=== PATIENT | female | born 1985 | race Caucasian/White ===

== ENCOUNTER 2016-06-01 03:08 | Emergency (ER) | payer OTHER ==
[~2016-06-01] VITALS: Ht 157.5 cm; Wt 55.0 kg
[2016-06-01 03:08] VITALS: TEMP 36.7; Ht 157.5 cm; Wt 55.0 kg
[~2016-06-01 03:08] MED LIST: BENZ100C84 PO; BUPR100T8 PO; BUPR8MIS SL; QUET5TAB PO
[2016-06-01] MEDS ORDERED: LORAZEPAM 2 MG/ML 1 ML VIAL IM STA (03:32)
[2016-06-01] MEDS ORDERED: HALOPERIDOL LACTATE 5 MG/ML 1 ML VIAL IM STA ×2 (03:32→03:45)
[2016-06-01 03:41] LABS: BUN/CREATININE RATIO 16.9 (10-20); CALCIUM 9.2 mg/dl (8.5-10.1); CREATININE 0.89 mg/dl (0.60-1.20); POTASSIUM 3.4 mmol/L (3.5-5.1)
[2016-06-01 03:56] LABS: PREG INTERNAL NEGATIVE QC NEG CLEAR BACKGROUND; PREG INTERNAL POSITIVE QC POS CONTROL LINE
--- NOTE | 2016-06-01 04:59 | EMERGENCY ROOM VISIT NOTE ---
History Report prepared by Ashlee: Anthony Goss Under the Supervision of: Dr. Perez Pro D.O. First contact with patient: 03:11 Chief Complaint: ALCOHOL OVERDOSE Stated Complaint: ALCOHOL OVERDOSE History of Present Illness The patient is a 30 year old female who presents to the Emergency Room with complaints of an alcohol overdose occurring prior to arrival. The EMS states that the patient left her work at 2200, and she started drinking afterwards at the bar with coworkers and friends. 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 Per the EMS the patient is currently on depression medications. History is limited due to intoxication. There is no trauma and patient denies any pain. Source of History: EMS History Limited By: intoxication Onset: prior to arrival Position: other (global) Quality: other (alcohol overdose) Review of Systems See HPI for pertinent positives & negatives. A total of 10 systems reviewed and were otherwise negative. Past Medical & Surgical Medical Problems: (1) Family History FH: heart disease FH: lung disease Hypertension Seizures Social History Smoking Status: Heavy Tobacco Smoker Alcohol Use: none Marital Status: single Housing Status: lives with family Occupation Status: employed Current/Historical Medications Unable to Obtain Active Prescriptions or Reported Meds Allergies Coded Allergies: No Known Allergies (Unverified , 12/04/15) Physical Exam Vital Signs Date Time Temp Pulse Resp B/P Pulse Ox O2 Delivery O2 Flow Rate FiO2 06/01/16 07:20 86 06/01/16 07:01 86 20 100/71 96 Room Air 06/01/16 05:48 84 16 108/72 95 Room Air 06/01/16 04:25 73 17 98/51 96 Room Air 06/01/16 03:24 86 18 150/89 95 Room Air 06/01/16 03:21 107 06/01/16 03:08 36.7 108 18 144/111 95 Room Air Physical Exam GENERAL: Laying in bed screaming, moving all extremities HEAD: Normocephalic atraumatic EYE EXAM: injected conjunctiva, PERRL and EOM's grossly intact OROPHARYNX: no exudate, no erythema, lips, buccal mucosa, and tongue normal and mucous membranes are moist NECK: supple, no nuchal rigidity, no adenopathy, non-tender LUNGS: Clear to auscultation. Normal chest wall mechanics HEART: no murmurs, S1 normal and S2 normal CHEST: No tenderness with palpation. ABDOMEN: abdomen soft, non-tender, normo-active bowel sounds, no masses, no rebound or guarding. BACK: Back is symmetrical on inspection and there is no deformity, no midline tenderness, no CVA tenderness. PELVIS: Stable with compression posteriorly and anteriorly. SKIN: no rashes and no bruising UPPER EXTREMITIES: upper extremities are grossly normal. LOWER EXTREMITIES: No pitting edema. NEURO EXAM: Alert intermittently following commands and very emotional, tearful , moving all extremities, non-focal Medical Decision & Procedures Laboratory Results 06/01/16 03:15 Test 06/01/16 03:15 Anion Gap 12.0 mmol/L (3-11) Est Creatinine Clear Calc Drug Dose 74.5 ml/min Estimated GFR () 102.2 Estimated GFR (Non- 88.2 BUN/Creatinine Ratio 16.9 (10-20) Calcium Level 9.2 mg/dl (8.5-10.1) Human Chorionic Gonadotropin, Qual NEG (NEG) Ethyl Alcohol mg/dL 321.0 mg/dl (0-3) Laboratory results per my review. Medications Administered Medications (Trade) Dose Ordered Sig/Danielle Route Start Time Stop Time Status Last Admin Dose Admin Haloperidol Lactate (Haldol Inj) 5 mg NOW STAT IM 06/01/16 03:32 06/01/16 03:33 DC 06/01/16 03:39 5 MG Lorazepam (Ativan Inj) 1 mg NOW STAT IM 06/01/16 03:32 06/01/16 03:33 DC 06/01/16 03:39 1 MG ED Course ED COURSE: Vital signs were reviewed and showed hypertensive The patients medical record was reviewed The above diagnostic studies were performed and reviewed. ED treatments and interventions as stated above. 0311: The patient was evaluated in room B11. A complete history and physical examination was performed. 0330: The patient was still agitated threatening to hurt the staff. She is going to be sedated. 0332: Ativan Inj 1mg IM, Haldol Inj 5mg IM 0519: I reevaluated the patient, and she was doing well 0630: I reevaluated the patient, and she awakens to painful stimuli. She does not follow commands. She is clearly still intoxicated 0715: This patient was signed out to Dr. Pereyra at change of shift. Medical Decision Differential diagnosis: Etiologies such as alcohol intoxication, toxicologic, infection, hypoglycemia, electrolyte abnormalities, cardiac sources, intracerebral event, neurologic, as well as others were entertained. Patient is a 30-year-old female who presents the ER following getting off work and drinking at the bar. Following this she was cut off as she was too intoxicated. There is no trauma per report. She has no signs of trauma on exam. She was brought in by EMS. She was agitated and thrashing around on the bed yelling and screaming. Following this she was restrained and sedated with palatal on Ativan. Labs are remarkable for a sodium of 147 and potassium of 3.4 which is likely secondary to the alcohol and dehydration. Beta hCG was negative. Alcohol was 320. This was drawn at 3:15 in the morning. She will be medically cleared at 2 PM in the afternoon. Patient was signed out to Dr. Pereyra at 7:30 in the morning still sedated from her agitation. Impression Primary Impression: Alcoholic intoxication Additional Impressions: Agitation Hypokalemia Alcohol abuse Critical Care I have personally spent 35 minutes of critical care time in the direct management of this patient. This includes bedside care, interpretation of diagnostic studies, and testing, discussion with consultants, patient, and family members, and other required patient management activities. This 35 minutes is in excess of all separately billable procedures. Scribe Attestation The scribe's documentation has been prepared under my direction and personally reviewed by me in its entirety. I confirm that the note above accurately reflects all work, treatment, procedures, and medical decision making performed by me. Departure Information Dispostion Still a Patient Prescriptions Unable to Obtain Active Prescriptions or Reported Meds Referrals No Doctor, Assigned (PCP) Patient Instructions My [facility] Problem Qualifiers Primary Impression: Alcoholic intoxication Complication of substance-induced condition: with unspecified complication Qualified Codes: F10.129 - Alcohol abuse with intoxication, unspecified
[2016-06-01 10:06] VITALS: PULSE 75; O2SAT 95
[2016-06-01 12:06] VITALS: BP 136/82
--- NOTE | 2016-06-01 20:57 | EMERGENCY ROOM VISIT NOTE ---
ED Visit Note First contact with patient: 07:39 I received this pt in signout at the change of shift from Dr Pro, pending a more sober state. Pt was observed on the structural shop helper until her mental status improved. She was awake and ambulatory. Pt was able to call her family for a ride. Pt was d/c to sister's care. Please see Dr Pro's notes for further details.
== END 2016-06-01 12:56 | disposition home or self-care (01) ==
LOC: EDBD 03:08 → C.EDB 03:09
DX: F10.129 Alcohol abuse with intoxication, unspecified (principal); R45.1 Restlessness and agitation; E87.6 Hypokalemia; Z82.49 Family history of ischemic heart disease and other diseases of the circulatory system; Z82.0 Family history of epilepsy and other diseases of the nervous system; F17.200 Nicotine dependence, unspecified, uncomplicated; Y90.8 Blood alcohol level of 240 mg/100 ml or more

== ENCOUNTER 2017-11-07 01:17 | Emergency (ER) | payer OTHER ==
[~2017-11-07] VITALS: Ht 157.5 cm; Wt 56.5 kg
[2017-11-07 01:17] VITALS: TEMP 36.9; Ht 157.5 cm; Wt 56.5 kg
[2017-11-07] MEDS ORDERED: SODIUM CHLORIDE 0.9% 1000ML 1,000 ML IV ONE (01:30)
[2017-11-07 01:37] VITALS: O2SAT 94
[2017-11-07 02:01] LABS: BASO % 0.2 %; BASO ABS # 0.02 K/uL (0-0.2); EOS % 4.5 %; EOS ABS # 0.39 K/uL (0-0.5); HEMATOCRIT 39.1 % (37-47); HEMOGLOBIN 12.8 g/dL (12.0-16.0); IG# 0.03 K/uL (0.00-0.02); LYMPH % 43.2 %; LYMPH ABS # 3.72 K/uL (1.2-3.4); MEAN CELL VOLUME 94.7 fL (80-100); MEAN CORPUSCULAR HGB CONC 32.7 g/dl (32-36); MEAN PLATELET VOLUME 9.9 fL (7.4-10.4); MONO % 6.2 %; MONO ABS # 0.53 K/uL (0.11-0.59); NEUT % 45.6 %; NEUT ABS # 3.92 K/uL (1.4-6.5); PLATELET COUNT 210 K/uL (130-400); RED CELL DISTRIBUTION WIDTH CV 14.3 % (11.5-14.5); RED CELL DISTRIBUTION WIDTH SD 49.5 fL (36.4-46.3); WHITE BLOOD COUNT 8.61 K/uL (4.8-10.8)
[2017-11-07 02:22] LABS: ALBUMIN 3.3 gm/dl (3.4-5.0); CALCIUM 8.2 mg/dl (8.5-10.1); CREATININE 1.07 mg/dl (0.60-1.20); POTASSIUM 3.8 mmol/L (3.5-5.1); TOTAL PROTEIN 6.7 gm/dl (6.4-8.2)
--- NOTE | 2017-11-07 06:55 | EMERGENCY ROOM VISIT NOTE ---
History First contact with patient: 01:21 Chief Complaint: OVERDOSE (INTENTIONAL) Stated Complaint: OVERDOSE History of Present Illness The patient is a 32 year old female who presents to the Emergency Room with complaints of overdose. The patient's car was found pulled off the side of [place] in [place] less than 1 hour ago. Police found the patient asleep in her car, and they were not able to awaken her. They had to break her car door window in order to extricate her. The patient did not awaken to sternal rub, and they did give her an initial dose of Narcan. Immediately after this she awoke and was responsive. Evidently there was drug paraphernalia in the vehicle. The patient herself denies any drug use. She denies suicidal or homicidal ideation. She states that she got paid today and came to the [employer] area to pay back someone that she borrowed money from. The patient states that she was at a gas station. She has difficulty providing any additional history because of her status. She does not report pain or injury. She rates her discomfort as 0/10. Review of Systems More than 10 systems were reviewed and otherwise negative with the exception of history of present illness. Past Medical/Surgical History Medical Problems: (1) Family History FH: heart disease FH: lung disease Hypertension Seizures Social History Smoking Status: Current Every Day Smoker Alcohol Use: none Marital Status: single Housing Status: lives with family Occupation Status: employed Current/Historical Medications No Active Prescriptions or Reported Meds Physical Exam Vital Signs Date Time Temp Pulse Resp B/P (MAP) Pulse Ox O2 Delivery O2 Flow Rate FiO2 11/07/17 06:00 67 18 133/83 95 Room Air 11/07/17 05:08 51 11/07/17 05:01 138/80 11/07/17 05:00 54 16 94 11/07/17 04:32 111/68 11/07/17 04:30 50 16 95 11/07/17 04:02 53 18 104/67 95 11/07/17 04:00 54 18 116/43 96 11/07/17 03:30 49 17 159/88 96 11/07/17 03:01 11/07/17 03:00 52 28 94 11/07/17 02:40 59 16 136/91 96 Room Air 11/07/17 01:37 94 Room Air 11/07/17 01:27 58 8/7/18 01:17 36.9 63 14 132/81 97 Room Air Physical Exam VITALS: Vitals are noted on the nurse's note and reviewed by myself. Vital signs stable. GENERAL: White female who appears under the influence of unknown substance. She will answer some questions with 1 or 2 word answers. She appears very tired , but is not somnolent HEAD: Normocephalic atraumatic. EARS: External ear normal. External auditory canals clear, tympanic membranes pearly machado without erythema or effusion bilaterally. EYES: Pupils equal round and reactive to light and accommodation. Conjunctivae without injection, sclerae without icterus. Extraocular movements intact. NOSE: Patent, turbinates without inflammation or discharge. No obvious foreign material appreciated MOUTH: Mucous membranes moist. Tonsils are not enlarged. There is a dark substance on the lips NECK: Supple without nuchal rigidity. No lymphadenopathy. No thyromegaly. Cervical spine is nontender. HEART: Regular rate and rhythm without murmurs gallops or rubs. LUNGS: Clear to auscultation bilaterally without wheezes, rales or rhonchi. No retractions or accessory muscle use. ABDOMEN: Positive normal bowel sounds x 4. Soft, nontender, without masses or organomegaly. No guarding or rebound tenderness. MUSCULOSKELETAL: No muscle atrophy, erythema, or edema noted. Full range of motion in all extremities. No track back appreciated. NEURO: Patient was not alert to place, time, or location Medical Decision & Procedures Laboratory Results 11/07/17 01:40 Red Blood Count 4.13, Mean Corpuscular Volume 94.7, Mean Corpuscular Hemoglobin 31.0, Mean Corpuscular Hemoglobin Concent 32.7, Mean Platelet Volume 9.9, Neutrophils (%) (Auto) 45.6, Lymphocytes (%) (Auto) 43.2, Monocytes (%) (Auto) 6.2, Eosinophils (%) (Auto) 4.5, Basophils (%) (Auto) 0.2, Neutrophils # (Auto) 3.92, Lymphocytes # (Auto) 3.72, Monocytes # (Auto) 0.53, Eosinophils # (Auto) 0.39, Basophils # (Auto) 0.02 11/07/17 01:40 Test 11/07/17 01:40 11/07/17 01:47 11/07/17 02:30 White Blood Count 8.61 K/uL (4.8-10.8) Red Blood Count 4.13 M/uL (4.2-5.4) Hemoglobin 12.8 g/dL (12.0-16.0) Hematocrit 39.1 % (37-47) Mean Corpuscular Volume 94.7 fL (80-100) Mean Corpuscular Hemoglobin 31.0 pg (25-34) Mean Corpuscular Hemoglobin Concent 32.7 g/dl (32-36) Platelet Count 210 K/uL (130-400) Mean Platelet Volume 9.9 fL (7.4-10.4) Neutrophils (%) (Auto) 45.6 % Lymphocytes (%) (Auto) 43.2 % Monocytes (%) (Auto) 6.2 % Eosinophils (%) (Auto) 4.5 % Basophils (%) (Auto) 0.2 % Neutrophils # (Auto) 3.92 K/uL (1.4-6.5) Lymphocytes # (Auto) 3.72 K/uL (1.2-3.4) Monocytes # (Auto) 0.53 K/uL (0.11-0.59) Eosinophils # (Auto) 0.39 K/uL (0-0.5) Basophils # (Auto) 0.02 K/uL (0-0.2) RDW Standard Deviation 49.5 fL (36.4-46.3) RDW Coefficient of Variation 14.3 % (11.5-14.5) Immature Granulocyte % (Auto) 0.3 % Immature Granulocyte # (Auto) 0.03 K/uL (0.00-0.02) Anion Gap 7.0 mmol/L (3-11) Est Creatinine Clear Calc Drug Dose 60.8 ml/min Estimated GFR () 80.7 Estimated GFR (Non- 69.6 BUN/Creatinine Ratio 14.1 (10-20) Calcium Level 8.2 mg/dl (8.5-10.1) Total Bilirubin 0.5 mg/dl (0.2-1) Aspartate Amino Transf (AST/SGOT) 11 U/L (15-37) Alanine Aminotransferase (ALT/SGPT) 20 U/L (12-78) Alkaline Phosphatase 59 U/L (45-117) Total Creatine Kinase 62 U/L (26-192) Total Protein 6.7 gm/dl (6.4-8.2) Albumin 3.3 gm/dl (3.4-5.0) Globulin 3.4 gm/dl (2.5-4.0) Albumin/Globulin Ratio 1.0 (0.9-2) Lipase 516 U/L (73-393) Salicylates Level 5.6 mg/dl (2.8-20) Acetaminophen Level < 2 ug/ml (10-30) Ethyl Alcohol mg/dL < 3.0 mg/dl (0-3) Bedside Troponin I < 0.030 ng/ml (0-0.045) Urine Color DK YELLOW Urine Appearance CLEAR (CLEAR) Urine pH 5.0 (4.5-7.5) Urine Specific [place] 1.036 (1.000-1.030) Urine Protein TRACE (NEG) Urine Glucose (UA) NEG (NEG) Urine Ketones NEG (NEG) Urine Occult Blood 2+ (NEG) Urine Nitrite NEG (NEG) Urine Bilirubin NEG (NEG) Urine Urobilinogen NEG (NEG) Urine Leukocyte Esterase NEG (NEG) Urine WBC (Auto) 1-5 /hpf (0-5) Urine RBC (Auto) 0-4 /hpf (0-4) Urine Hyaline Casts (Auto) 1-5 /lpf (0-5) Urine Epithelial Cells (Auto) >30 /lpf (0-5) Urine Bacteria (Auto) NEG (NEG) Urine Test NEG (NEG) Urine Opiates Screen NEG (NEG) Urine Methadone, Qualitative NEG (NEG) Urine Barbiturates NEG (NEG) Urine Phencyclidine (PCP) Level NEG (NEG) Ur Amphetamine/Methamphetamine NEG (NEG) MDMA (Ecstasy) Screen POS (NEG) Urine Benzodiazepines Screen NEG (NEG) Urine Cocaine Metabolite NEG (NEG) Urine Marijuana (THC) NEG (NEG) Medications Administered Medications (Trade) Dose Ordered Sig/Danielle Route Start Time Stop Time Status Last Admin Dose Admin Sodium Chloride 1,000 ml @ 999 mls/hr Q1H1M ONCE IV 11/07/17 01:30 11/07/17 02:30 DC 11/07/17 01:39 999 MLS/HR ED Course Physical exam and history were performed. Nursing notes, EMR, and Medication List were personally reviewed. Patient appears to have overdosed on an unknown drug. She appears under the influence, but is answering questions in 1 or 2 word answers. She does not give a good history, and overall denies the events of the evening despite police involvement. Police did talk to the patient while she was here in the department. IV access was established and labs were obtained. She was hydrated with normal saline. The patient was overall cooperative. The patient's blood work is as above and was reviewed. She does not have a significantly elevated white blood cell count, gross anemia, bandemia, or significant electrolyte imbalance. Transaminases are not diagnostic. Urine is without evidence of infection or . Drug of abuse screen was positive for ecstasy, however this may be from psych. Her alcohol is negative. Tylenol and salicylate level are negative. The patient was reevaluated multiple times throughout the course of her stay. She remained very comfortable and cooperative here in the department over the course of nearly 6 hours. She may have been doing synthetic drugs, as there was paraphernalia in her vehicle. The patient was able to maintain normal vital signs and sleep very comfortably here in the department. She awoken very easily to voice, and did not have any worsening of her symptoms. After several hours the patient did awaken and was felt to be stable for discharge home. I did re-interview her, and she essentially denies that anything occurred this evening. She maintains that she was just tired and was sleeping in her car. She does not have suicidal or homicidal ideas. She does not wish for social science research assistant for resources. The patient was given discharge instructions as below and otherwise invited back to the ER with any new, worsening, or concerning symptoms. The chart was completed utilizing [employer] Voice Recognition Software. Grammatical errors, random word insertions, pronoun errors, and incomplete sentences are an occasional consequence of this system due to software limitations, ambient noise, and hardware issues. Any formal questions or concerns about the content, text, or information contained within the body of this dictation should be directly addressed to the provider for clarification. . Medical Decision Differential diagnosis: Etiologies such as metabolic, infection, hypoglycemia, electrolyte abnormalities , cardiac sources, intracerebral event, toxicologic, neurologic, as well as others were entertained. Impression Primary Impression: Overdose Departure Information Dispostion Home / Self-Care Condition GOOD Prescriptions No Active Prescriptions or Reported Meds Forms HOME CARE DOCUMENTATION FORM, IMPORTANT VISIT INFORMATION Patient Instructions My [facility] Additional Instructions You were seen and evaluated today on an emergency basis only. This is not a substitute for, or an effort to provide, complete comprehensive medical care. It is not possible to recognize and treat all injuries or illnesses in a single emergency department visit. For this reason it is recommended that you followup with your primary care physician with any persisting symptoms. You are welcome to return to the emergency department anytime with new, worsening, or concerning symptoms. Problem Qualifiers Primary Impression: Overdose Encounter type: initial encounter Injury intent: undetermined intent Qualified Codes: T50.904A - Poisoning by unspecified drugs, medicaments and biological substances, undetermined, initial encounter
--- NOTE | 2017-11-07 07:33 | DIAGNOSTIC IMAGING REPORT ---
SINGLE VIEW CHEST CLINICAL HISTORY: Overdose. FINDINGS: An AP, portable, upright chest radiograph is compared to study dated 10/01/2015. The examination is degraded by portable technique and patient rotation. The cardiomediastinal silhouette is unremarkable. There is minimal bibasilar atelectasis. The lungs and pleural spaces are otherwise clear. No pneumothorax is seen. The bony thorax is grossly intact. IMPRESSION: No acute cardiopulmonary abnormality. Electronically signed by: Compa Mosher M.D. 11/07/2017 7:32 AM Dictated Date/Time: 11/07/2017 7:31 AM
[2017-11-07 07:48] VITALS: BP 124/71; PULSE 53; O2SAT 97
== END 2017-11-07 08:15 | disposition home or self-care (01) ==
LOC: EDBD 01:17 → C.EDC 01:20
DX: T50.904A Poisoning by unspecified drugs, medicaments and biological substances, undetermined, initial encounter (principal)

== ENCOUNTER → 2017-11-07 | Outpatient (CLI) | payer OTHER | END | disposition home or self-care (01) | LOC: C.LAB 02:09 | DX: Z02.83 Encounter for blood-alcohol and blood-drug test (principal) ==

== ENCOUNTER 2020-10-21 20:13 | Inpatient (IN) ==
[2020-10-21] MEDS ORDERED: SODIUM CHLORIDE 0.9% 1000ML 1,000 ML IV ONE (20:24)
[2020-10-21 21:13] LABS: Appearance Urine Clear (Clear); Blood Urine Negative (Negative); Color Urine Dark Yellow; Glucose Urine UA Negative (Negative); Ketones Urine Negative (Negative); Leukocyte Esterase Urine Negative (Negative); Nitrite Urine Negative (Negative); Protein Urine Negative (Negative); Specific Gravity Urine 1.012 (1.000-1.030); Urobilinogen Urine Negative (Negative)
--- NOTE | 2020-10-21 21:13 | Emergency Department Note ---
History of Present Illness General Chief Complaint: Flank Pain Stated Complaint: R SIDE FLANK PAIN, DEHYDRATION, BACK PAIN Time Seen by Provider: 10/21/20 20:25 History of Present Illness Provider Complaint: abdominal pain and flank pain Onset (ago): 3 day(s) Pain Consistency: constant Location: RUQ Radiation: R flank and back Severity: moderate Maximum Pain Intensity: 7 Current Pain Intensity: 7 Quality: + stabbing, + aching, + sharp and + dull Relieved By: + nothing Exacerbated By: + nothing Context: no foreign travel, no possible food poisoning, no sick contacts, no recent antibiotic use, no recent surgery/procedure or no recent injury Associated Symptoms: + nausea and + back pain; no vomiting, no diarrhea, no fever, no chills, no constipation, no dysuria, no hematemesis, no hematochezia, no melena, no hematuria, no anorexia, no syncope, no headache, no neck pain, no chest pain, no weakness and no numbness Home Medications Medication Instructions Recorded Confirmed Type quetiapine 200 mg tablet 200 mg PO BID 10/21/20 10/21/20 History sertraline 50 mg tablet 50 mg PO DAILY 10/21/20 10/21/20 History Allergies Allergy/AdvReac Type Severity Reaction Status Date / Time No Known Allergies Allergy Verified 10/21/20 23:10 Past Med/Surg History Medical History (Updated 10/21/20 @ 23:52 by Ryan Brody) Altered mental status Surgical History (Updated 10/21/20 @ 21:12 by Ryan Brody) No pertinent past surgical history Family History Other Seizure Social History (Updated 10/21/20 @ 21:12 by Ryan Brody) Smoking Status: Current every day smoker Hx Substance Use: Yes Non-Prescribed Medications: IV Drugs and Methamphetamines Preferred Language: Martiniquais Feels Safe at Home: Yes Review of Systems A total of 10 systems reviewed and were otherwise negative Physical Exam Vital Signs: Vital Signs - 24 hr 10/21/20 20:19 10/21/20 21:01 10/21/20 21:53 Temperature 37.0 C Temperature Source Temporal Artery Sc an Pulse Rate 97 H Pulse Rate from Sp O2 Sensor 95 H Respiratory Rate 18 17 Respiratory Effort / Characteristics Non-Labored Sponta neous Respiratory Depth Normal Respiratory Patter n Regular Blood Pressure 141/95 H 136/97 130/109 H Blood Pressure Aniyah n 110 110 116 Blood Pressure Pos ition Sitting Pulse Oximetry 96 98 Oxygen Delivery Me thod Room Air Sepsis Recent Feve r Within 48 Hours No Sepsis New/Unexpla ined Change in Men tomer Status No Sepsis Action Take n by Nursing No Action Required 10/21/20 21:56 10/21/20 22:00 10/21/20 22:31 Temperature Temperature Source Pulse Rate 90 Pulse Rate from Sp O2 Sensor 80 89 Respiratory Rate 18 18 Respiratory Effort / Characteristics Respiratory Depth Respiratory Patter n Blood Pressure 146/99 H 125/95 Blood Pressure Aniyah n 114 105 Blood Pressure Pos ition Pulse Oximetry 98 98 97 Oxygen Delivery Me thod Room Air Sepsis Recent Feve r Within 48 Hours Sepsis New/Unexpla ined Change in Men tomer Status Sepsis Action Take n by Nursing Physical Exam: Physical Exam GENERAL: She is oriented to person, place, and time. She appears well-developed and well-nourished. She does not appear distressed. HENT: Exam performed. -Head: Normocephalic and atraumatic. -Right Ear: External ear normal. No mastoid tenderness. -Left Ear: External ear normal. No mastoid tenderness. -Mouth/Throat: The oropharynx is clear and moist. No trismus in the jaw. No dental abscesses or uvula swelling. No oropharyngeal exudate or tonsillar abscesses. EYES: Conjunctivae and EOM are normal. Pupils are equal, round, and reactive to light. Right eye exhibits no discharge. Left eye exhibits no discharge. scleral icterus. NECK: Normal range of motion. Neck supple. No JVD present. No spinous process tenderness present. No carotid bruit present. No rigidity. No tracheal deviation and normal range of motion present. No Brudzinski's sign and no Kernig's sign noted. CV: Normal rate, regular rhythm, normal heart sounds and intact distal pulses. There is no peripheral edema. Palpable radial pulses bue. PULM/CHEST: Effort normal and breath sounds normal. No respiratory distress. No stridor. She has no wheezes. She has no rales. -Chest Wall: She exhibits no tenderness. ABD: The abdomen is soft. Bowel sounds are normal. She has no distension. No mass is present. There is no tenderness. There is no rebound, no guarding, no Saleem's sign and no tenderness at McBurney's point. Rovsig negative MUSC/SKEL: Normal range of motion. There is no peripheral edema, tenderness or deformity. LYMPH: No cervical adenopathy. NEURO: She is alert and oriented to person, place, and time. She has normal strength. No cranial nerve deficit or sensory deficit. Coordination and gait normal. GCS eye subscore is 4. GCS verbal subscore is 5. GCS motor subscore is 6. Cerebellar tests wnl. SKIN: Jaundice PSYCH: She has a normal mood and affect. Behavior is normal. Judgment and thought content normal. Course Course 2024: The patient was evaluated in room A12. A complete history and physical exam was performed Cardiac monitoring: An order was placed for continuous cardiac monitoring. The monitor shows a rate of 90 with sinus rhythm 2220: Vital signs stable. Ultrasound of the right upper quadrant within normal limits. X-ray shows constipation. Labs show total bilirubin of 5 and a direct bilirubin of 3.9. AST/ALT 1079/1449. Alkaline phosphatase 217. [facility] new transaminitis and elevated bilirubin level. Dr. Alfaro team will be has been notified Administered Medications Discontinued Medications Sodium Chloride (Nss 1000ml) 1,000 mls @ 999 mls/hr IV .Q1H1M ONE Stop: 10/21/20 21:24 Last Infusion: 10/21/20 22:14 Dose: 0 mls/hr Documented by: [id number] Admin: 10/21/20 20:45 Dose: 999 mls/hr Documented by: [id number] Medical Decision Making Laboratory Data Result diagrams: 10/21/20 Unknown 10/21/20 20:54 Lab Results 10/21/20 10/21/20 10/21/20 Range/Units 20:54 20:54 22:28 WBC (4.8-10.8) K/uL RBC (4.2-5.4) M/uL Hgb (12.0-16.0) g/dL Hct (37-47) % MCV (80-100) fL MCH (25-34) pg MCHC (32-36) g/dL RDW Std Deviation (36.4-46.3) fL RDW Coeff of Ally (11.5-14.5) % Plt Count (130-400) K/uL MPV (7.4-10.4) fL Immature Gran % (Auto) % Neut % (Auto) % Lymph % (Auto) % [place] % (Auto) % Eos % (Auto) % Baso % (Auto) % Neut # (Auto) (1.4-6.5) K/uL Lymph # (Auto) (1.2-3.4) K/uL [place] # (Auto) (0.11-0.59) K/uL Eos # (Auto) (0-0.5) K/uL Baso # (Auto) (0-0.2) K/uL Immature Gran # (Auto) (0.00-0.02) K/uL PT 10.3 (9.0-12.0) Seconds INR 1.0 (0.9-1.1) APTT 29.6 (21.0-31.0) Seconds PTT Ratio 1.1 Sodium 139 (136-145) mmol/L Potassium 3.8 (3.5-5.1) mmol/L Chloride 108 H (98-107) mmol/L Carbon Dioxide 26 (21-32) mmol/L Anion Gap 5.0 (3-11) BUN 10 (7-18) mg/dl Creatinine 0.80 (0.6-1.2) mg/dl Est Cr Clr Drug Dosing 87.2 ml/min Est GFR ( Amer) 112.3 ml/min Est GFR (Non-Af Amer) 96.9 ml/min BUN/Creatinine Ratio 13.0 (10-20) Glucose 92 (70-99) mg/dl Calcium 9.0 (8.5-10.1) mg/dl Total Bilirubin 5.0 H (0.2-1) mg/dl Direct Bilirubin 3.9 H (0-0.2) mg/dl AST 1079 H (15-37) U/L ALT 1449 H (12-78) U/L Alkaline Phosphatase 217 H (45-117) U/L Total Protein 7.5 (6.4-8.2) gm/dl Albumin 3.5 (3.4-5.0) gm/dl Lipase 161 (73-393) U/L Urine Color Urine Appearance (Clear) Urine pH (4.5-7.5) Ur Specific Cummings (1.000-1.030) Urine Protein (Negative) Urine Glucose (UA) (Negative) Urine Ketones (Negative) Urine Blood (Negative) Urine Nitrite (Negative) Urine Bilirubin (Negative) Urine Urobilinogen (Negative) Ur Leukocyte Esterase (Negative) Urine Test (Negative) Acetaminophen COVID-19 Eval Order Covid19 at [facility] SARS-CoV-2 (PCR) (Negative) 10/21/20 10/21/20 10/21/20 Range/Units 22:28 22:57 Unknown WBC 7.95 (4.8-10.8) K/uL RBC 4.60 (4.2-5.4) M/uL Hgb 14.3 (12.0-16.0) g/dL Hct 41.7 (37-47) % MCV 90.7 (80-100) fL MCH 31.1 (25-34) pg MCHC 34.3 (32-36) g/dL RDW Std Deviation 48.4 H (36.4-46.3) fL RDW Coeff of Ally 14.7 H (11.5-14.5) % Plt Count 286 (130-400) K/uL MPV 10.7 H (7.4-10.4) fL Immature Gran % (Auto) 0.6 % Neut % (Auto) 51.1 % Lymph % (Auto) 30.6 % [place] % (Auto) 11.9 % Eos % (Auto) 5.3 % Baso % (Auto) 0.5 % Neut # (Auto) 4.06 (1.4-6.5) K/uL Lymph # (Auto) 2.43 (1.2-3.4) K/uL [place] # (Auto) 0.95 H (0.11-0.59) K/uL Eos # (Auto) 0.42 (0-0.5) K/uL Baso # (Auto) 0.04 (0-0.2) K/uL Immature Gran # (Auto) 0.05 H (0.00-0.02) K/uL PT (9.0-12.0) Seconds INR (0.9-1.1) APTT (21.0-31.0) Seconds PTT Ratio Sodium (136-145) mmol/L Potassium (3.5-5.1) mmol/L Chloride (98-107) mmol/L Carbon Dioxide (21-32) mmol/L Anion Gap (3-11) BUN (7-18) mg/dl Creatinine (0.6-1.2) mg/dl Est Cr Clr Drug Dosing ml/min Est GFR ( Amer) ml/min Est GFR (Non-Af Amer) ml/min BUN/Creatinine Ratio (10-20) Glucose (70-99) mg/dl Calcium (8.5-10.1) mg/dl Total Bilirubin (0.2-1) mg/dl Direct Bilirubin (0-0.2) mg/dl AST (15-37) U/L ALT (12-78) U/L Alkaline Phosphatase (45-117) U/L Total Protein (6.4-8.2) gm/dl Albumin (3.4-5.0) gm/dl Lipase (73-393) U/L Urine Color Urine Appearance (Clear) Urine pH (4.5-7.5) Ur Specific Cummings (1.000-1.030) Urine Protein (Negative) Urine Glucose (UA) (Negative) Urine Ketones (Negative) Urine Blood (Negative) Urine Nitrite (Negative) Urine Bilirubin (Negative) Urine Urobilinogen (Negative) Ur Leukocyte Esterase (Negative) Urine Test (Negative) Acetaminophen Cancelled COVID-19 Eval Order SARS-CoV-2 (PCR) NEGATIVE (Negative) 10/21/20 10/21/20 Range/Units Unknown Unknown WBC (4.8-10.8) K/uL RBC (4.2-5.4) M/uL Hgb (12.0-16.0) g/dL Hct (37-47) % MCV (80-100) fL MCH (25-34) pg MCHC (32-36) g/dL RDW Std Deviation (36.4-46.3) fL RDW Coeff of Ally (11.5-14.5) % Plt Count (130-400) K/uL MPV (7.4-10.4) fL Immature Gran % (Auto) % Neut % (Auto) % Lymph % (Auto) % [place] % (Auto) % Eos % (Auto) % Baso % (Auto) % Neut # (Auto) (1.4-6.5) K/uL Lymph # (Auto) (1.2-3.4) K/uL [place] # (Auto) (0.11-0.59) K/uL Eos # (Auto) (0-0.5) K/uL Baso # (Auto) (0-0.2) K/uL Immature Gran # (Auto) (0.00-0.02) K/uL PT (9.0-12.0) Seconds INR (0.9-1.1) APTT (21.0-31.0) Seconds PTT Ratio Sodium (136-145) mmol/L Potassium (3.5-5.1) mmol/L Chloride (98-107) mmol/L Carbon Dioxide (21-32) mmol/L Anion Gap (3-11) BUN (7-18) mg/dl Creatinine (0.6-1.2) mg/dl Est Cr Clr Drug Dosing ml/min Est GFR ( Amer) ml/min Est GFR (Non-Af Amer) ml/min BUN/Creatinine Ratio (10-20) Glucose (70-99) mg/dl Calcium (8.5-10.1) mg/dl Total Bilirubin (0.2-1) mg/dl Direct Bilirubin (0-0.2) mg/dl AST (15-37) U/L ALT (12-78) U/L Alkaline Phosphatase (45-117) U/L Total Protein (6.4-8.2) gm/dl Albumin (3.4-5.0) gm/dl Lipase (73-393) U/L Urine Color Dark Yellow Urine Appearance Clear (Clear) Urine pH 6.0 (4.5-7.5) Ur Specific Cummings 1.012 (1.000-1.030) Urine Protein Negative (Negative) Urine Glucose (UA) Negative (Negative) Urine Ketones Negative (Negative) Urine Blood Negative (Negative) Urine Nitrite Negative (Negative) Urine Bilirubin 1+ H (Negative) Urine Urobilinogen Negative (Negative) Ur Leukocyte Esterase Negative (Negative) Urine Test Negative (Negative) Acetaminophen COVID-19 Eval Order SARS-CoV-2 (PCR) (Negative) Imaging Data My Impression: Chest x-ray negative. Airway clear. No pneumothorax. No consolidation. No cardiomegaly or cephalization.. No free air under the diaphragm. No fractures of the skeletal structures. No air-fluid levels. Constipated. Radiologist's Impression: PreliminaryFindingsOnly See Final Report For Complete Findings US GALLBLADDER: Normal exam. No cholelithiasis or acute cholecystitis. Normal, contracted gallbladder and negative sonographic Saleem's. No ductal dilatation, CBD 3 mm. No hydronephrosis of the right kidney. Radiologist: Margy Mchugh M.D. Study ready at 21:52 and initial results transmitted at 22:15 MDM Narrative 2024: The patient was evaluated in room A12. A complete history and physical exam was performed Cardiac monitoring: An order was placed for continuous cardiac monitoring. The monitor shows a rate of 90 with sinus rhythm 2220: Vital signs stable. Ultrasound of the right upper quadrant within normal limits. X-ray shows constipation. Labs show total bilirubin of 5 and a direct bilirubin of 3.9. AST/ALT 1079/1449. Alkaline phosphatase 217. [facility] new transaminitis and elevated bilirubin level. Dr. Alfaro team will be has been notified Impression & Plan Jaundice, Transaminitis Discharge Plan Visit Data Chief Complaint: Flank Pain Stated Complaint: R SIDE FLANK PAIN, DEHYDRATION, BACK PAIN ED Provider: Ryan Brody Discharge Problem: Jaundice, Transaminitis Patient Disposition: Admitted As Inpatient Forms Stand Alone Forms: My [facility] [address] Prescriptions Prescriptions: No Action quetiapine 200 mg tablet 200 mg PO BID RF: 0 sertraline 50 mg Tablet 50 mg PO DAILY RF: 0 Referrals Referrals: [facility] [Primary Care Provider] -
[2020-10-21 21:24] LABS: Basophils # (auto) 0.04 K/uL (0-0.2); Basophils % (auto) 0.5 %; Eosinophils # (auto) 0.42 K/uL (0-0.5); Eosinophils % (auto) 5.3 %; Hematocrit (blood only) 41.7 % (37-47); Hemoglobin 14.3 g/dL (12.0-16.0); Immature Granulocytes # (auto) 0.05 K/uL (0.00-0.02); Immature Granulocytes % (auto) 0.6 %; Lymphocytes # (auto) 2.43 K/uL (1.2-3.4); Lymphocytes % (auto) 30.6 %; Mean Corpuscular Hemoglobin 31.1 pg (25-34); Mean Corpuscular Hgb Conc 34.3 g/dL (32-36); Mean Corpuscular Volume 90.7 fL (80-100); Mean Platelet Volume 10.7 fL (7.4-10.4); Monocytes # (auto) 0.95 K/uL (0.11-0.59); Monocytes % (auto) 11.9 %; Neutrophils # (auto) 4.06 K/uL (1.4-6.5); Neutrophils % (auto) 51.1 %; Platelet Count 286 K/uL (130-400); RDW Coefficient of Variation 14.7 % (11.5-14.5); RDW Standard Deviation 48.4 fL (36.4-46.3); White Blood Count 7.95 K/uL (4.8-10.8)
[2020-10-21 21:24] LABS: Partial Thromboplastin Ratio 1.1; Partial Thromboplastin Time 29.6 Seconds (21.0-31.0); Prothrombin Time 10.3 Seconds (9.0-12.0)
[2020-10-21 21:29] LABS: Pregnancy Test, Urine Negative (Negative)
[2020-10-21 21:34] LABS: Albumin Level 3.5 gm/dl (3.4-5.0); Bilirubin Direct 3.9 mg/dl (0-0.2); Creatinine Clr Calc Pharmacy 87.2 ml/min; Est GFR (African American) 112.3 ml/min; Est GFR (Non-African American) 96.9 ml/min; Potassium 3.8 mmol/L (3.5-5.1)
[2020-10-21 21:38] LABS: Total Protein 7.5 gm/dl (6.4-8.2)
[2020-10-21 21:49] LABS: Bilirubin Urine 1+ (Negative)
--- NOTE | 2020-10-21 23:37 | History & Physical Report ---
Date of Service October 21, 2020 Assessment & Plan (1) Abnormal LFTs: Plan: Abnormal LFTs/jaundice/right upper quadrant abdominal pain radiating to right flank/new hepatitis C antibody positivity and blood- Hepatitis C RNA quantitative laboratories pending now for follow-up Consult gastroenterology Repeat laboratories in a.m. Remaining acute hepatitis viral panel pending It should be discussed with the patient in the a.m. consideration for HIV testing (2) Jaundice: Plan: See above (3) Right upper quadrant abdominal pain: Plan: See above (4) Hepatitis C antibody positive in blood: Plan: See above History of Present Illness Chief Complaint: The patient presents to the emergency department with right upper quadrant and right flank pain worsening over the past 3 days, but initially noted about 2 months ago and intermittent since that time Primary Care Provider: [facility] The patient is a 35-year-old resident of [facility], with a past medical history including depression, who presents to the emergency department with the above complaint. She does report a history of drug abuse, but denies any regular alcohol use and does not take in a lot of Tylenol. Pertinent laboratories in the emergency department: Total bilirubin 5.0, direct bilirubin 3.9, AST 1079, ALT 1449 and alkaline phosphatase 217. Follow-up laboratories include the following: COVID-19 negative, hepatitis A IgM pending, hepatitis B surface antigen negative, hepatitis B core IgM antibody pending and hepatitis C antibody preliminarily positive, with RNA PCR pending Gallbladder ultrasound was normal. CT scan of abdomen and pelvis CT scan of abdomen and pelvis without contrast was negative Allergies Allergy/AdvReac Type Severity Reaction Status Date / Time No Known Allergies Allergy Verified 10/21/20 23:10 Home Medications Medication Instructions Recorded Confirmed Type quetiapine 200 mg tablet 200 mg PO BID 10/21/20 10/21/20 History sertraline 50 mg tablet 50 mg PO DAILY 10/21/20 10/21/20 History Past Med/Surg History Medical History (Updated 10/22/20 @ 05:04 by Doc Peña MD) Altered mental status Surgical History No pertinent past surgical history Family History Other Seizure Social History (Updated 10/21/20 @ 21:12 by Ryan Brody) Smoking Status: Former smoker Second Hand Exposure: No; Do You Dip or Chew Tobacco: No; Tobacco Cessation Education Requested by Patient: No Hx Alcohol Use: No Hx Substance Use: Yes Non-Prescribed Medications: IV Drugs and Methamphetamines Last Used Substance: Days (ago) Last Used Substance Other:: September 20 Substance Use Type Other:: 10 months ago started IV drug use Preferred Language: Norwegian Learning Strategist Required: No Beliefs That Will Affect Care: None Current Living Situation Comment: Inmate Other Information That Helps Us Care for You: No Feels Safe at Home: Yes Safety Concerns: Feels Safe At This Time Assistive Devices: None Review of Systems Review of Systems: The patient denies chest pain, palpitations, shortness of breath, dyspnea on exertion, cough, lower extremity swelling, sore throat, fevers, chills, sweats, weight change, fatigue, nausea, vomiting, diarrhea , constipation, pelvic pain, blood in urine or stool, dysuria, urinary frequency or urgency, lightheadedness, dizziness, headache, memory loss, loss of consciousness, rash, abnormal bruising or bleeding, imbalance, focal or generalized weakness, numbness or tingling in arms or legs, generalized arthralgias or myalgias, neck pain, or night sweats. The review of systems is otherwise negative other than for that already noted above, and at least 10 systems have been reviewed. Physical Exam Physical Exam: The patient is awake, alert and oriented 3, well developed and well nourished, normocephalic and atraumatic, lying in bed and in no acute distress. HEENT--PERRL, EOMI, mucous membranes and oropharynx normal. Neck--supple. No JVD. No bruits. Thyroid normal, trachea midline, no adenopathy. Heart--normal S1 and S2. No murmurs, rubs or gallops. Lungs--clear bilaterally, no respiratory distress, no accessory muscle use. Abdomen--normal bowel sounds and soft. Mild right upper quadrant and right flank pain with palpation. Extremities--no cyanosis or clubbing. No edema. Dermatologic--normal skin turgor, normal color, no abnormal lymph nodes, no rash. Neurologic--cranial nerves II through XII grossly intact. Rheumatologic--normal range of motion. Psychiatric--normal affect. Results & Data Results & Data ([facility]) Vital Signs (Past 12 Hours) Vital Signs Temp Pulse Resp BP Pulse Ox 10/21/20 22:31 90 18 125/95 97 10/21/20 22:00 18 146/99 H 98 10/21/20 21:56 98 10/21/20 21:53 17 130/109 H 98 10/21/20 21:01 136/97 10/21/20 20:19 98.6 F 97 H 18 141/95 H 96 Laboratory Results Laboratory Results WBC 7.95 K/uL (4.8-10.8) 10/21/20 Unknown RBC 4.60 M/uL (4.2-5.4) 10/21/20 Unknown Hgb 14.3 g/dL (12.0-16.0) 10/21/20 Unknown Hct 41.7 % (37-47) 10/21/20 Unknown MCV 90.7 fL (80-100) 10/21/20 Unknown MCH 31.1 pg (25-34) 10/21/20 Unknown MCHC 34.3 g/dL (32-36) 10/21/20 Unknown RDW Std Deviation 48.4 fL (36.4-46.3) H 10/21/20 Unknown RDW Coeff of Ally 14.7 % (11.5-14.5) H 10/21/20 Unknown Plt Count 286 K/uL (130-400) 10/21/20 Unknown MPV 10.7 fL (7.4-10.4) H 10/21/20 Unknown Immature Gran % (Auto) 0.6 % 10/21/20 Unknown Neut % (Auto) 51.1 % 10/21/20 Unknown Lymph % (Auto) 30.6 % 10/21/20 Unknown [place] % (Auto) 11.9 % 10/21/20 Unknown Eos % (Auto) 5.3 % 10/21/20 Unknown Baso % (Auto) 0.5 % 10/21/20 Unknown Neut # (Auto) 4.06 K/uL (1.4-6.5) 10/21/20 Unknown Lymph # (Auto) 2.43 K/uL (1.2-3.4) 10/21/20 Unknown [place] # (Auto) 0.95 K/uL (0.11-0.59) H 10/21/20 Unknown Eos # (Auto) 0.42 K/uL (0-0.5) 10/21/20 Unknown Baso # (Auto) 0.04 K/uL (0-0.2) 10/21/20 Unknown Immature Gran # (Auto) 0.05 K/uL (0.00-0.02) H 10/21/20 Unknown PT 10.3 Seconds (9.0-12.0) 10/21/20 20:54 INR 1.0 (0.9-1.1) 10/21/20 20:54 APTT 29.6 Seconds (21.0-31.0) 10/21/20 20:54 PTT Ratio 1.1 10/21/20 20:54 Sodium 139 mmol/L (136-145) 10/21/20 20:54 Potassium 3.8 mmol/L (3.5-5.1) 10/21/20 20:54 Chloride 108 mmol/L (98-107) H 10/21/20 20:54 Carbon Dioxide 26 mmol/L (21-32) 10/21/20 20:54 Anion Gap 5.0 (3-11) 10/21/20 20:54 BUN 10 mg/dl (7-18) 10/21/20 20:54 Creatinine 0.80 mg/dl (0.6-1.2) 10/21/20 20:54 Est Cr Clr Drug Dosing 87.2 ml/min 10/21/20 20:54 Est GFR ( Amer) 112.3 ml/min 10/21/20 20:54 Est GFR (Non-Af Amer) 96.9 ml/min 10/21/20 20:54 BUN/Creatinine Ratio 13.0 (10-20) 10/21/20 20:54 Glucose 92 mg/dl (70-99) 10/21/20 20:54 Calcium 9.0 mg/dl (8.5-10.1) 10/21/20 20:54 Total Bilirubin 5.0 mg/dl (0.2-1) H 10/21/20 20:54 Direct Bilirubin 3.9 mg/dl (0-0.2) H 10/21/20 20:54 AST 1079 U/L (15-37) H 10/21/20 20:54 ALT 1449 U/L (12-78) H 10/21/20 20:54 Alkaline Phosphatase 217 U/L (45-117) H 10/21/20 20:54 Total Protein 7.5 gm/dl (6.4-8.2) 10/21/20 20:54 Albumin 3.5 gm/dl (3.4-5.0) 10/21/20 20:54 Lipase 161 U/L (73-393) 10/21/20 20:54 Urine Color Dark Yellow 10/21/20 Unknown Urine Appearance Clear (Clear) 10/21/20 Unknown Urine pH 6.0 (4.5-7.5) 10/21/20 Unknown Ur Specific [place] 1.012 (1.000-1.030) 10/21/20 Unknown Urine Protein Negative (Negative) 10/21/20 Unknown Urine Glucose (UA) Negative (Negative) 10/21/20 Unknown Urine Ketones Negative (Negative) 10/21/20 Unknown Urine Blood Negative (Negative) 10/21/20 Unknown Urine Nitrite Negative (Negative) 10/21/20 Unknown Urine Bilirubin 1+ (Negative) H 10/21/20 Unknown Urine Urobilinogen Negative (Negative) 10/21/20 Unknown Ur Leukocyte Esterase Negative (Negative) 10/21/20 Unknown Urine Test Negative (Negative) 10/21/20 Unknown Nasal Screen MRSA (PCR) Negative (Negative) 10/22/20 Unknown Acetaminophen Cancelled 10/21/20 22:57 COVID-19 Eval Order Covid19 at [facility] 10/21/20 22:28 SARS-CoV-2 (PCR) NEGATIVE (Negative) 10/21/20 22:28 Hep Bs Antigen Neg (Neg) 10/21/20 22:57 Hepatitis C Antibody Prelim Pos (Neg) A 10/21/20 22:57 Diagnostic Findings [facility] Patient: RNE COWAN [id number] (Female) : 89 Status: ER Date: 10/21/20 21:46 Room #: History: RUQ PAIN, RT FLANK PAIN Slices: 34 Priors: Tech: Jim Mccormackon @ [phone] Exams: US GALLBLADDER Contrast: Accession Numbers: [id number] Referring Physician: [facility] Preliminary Findings Only See Final Report For Complete Findings US GALLBLADDER: Normal exam. No cholelithiasis or acute cholecystitis. Normal, contracted gallbladder and negative sonographic Saleem's. No ductal dilatation, CBD 3 mm. No hydronephrosis of the right kidney. Radiologist: Margy Mchugh M.D. Study ready at 21:52 and initial results transmitted at 22:15 *This report constitutes a preliminary interpretation only. Non-acute findings felt to be unrelated to the clinical presentation may not be discussed in this report. The study will be interpreted and a final report will be generated by the local Radiologist the following shift. To reach the hospital radiology department call [phone]. If a discrepancy is found between the preliminary and final interpretations of this study, please notify us via our Client Portal at [email or web address].You can also fax this report with a description of the discrepancy, or include the final report, to our daytime fax number [phone].If faxing, please indicate the severity of discrepancy using one of the following categories: [ ] 1 - Agree/Informational [ ] 2 - Unlikely to Affect Management [ ] 3 - Possible Eventual Change of Management [ ] 4 - Probable Immediate Change of Management For all other patient related information, please fax us at [phone]. [id number] [facility] Patient: REN COWAN [id number] (Female) : 89 Status: ER Date: 10/21/20 23:06 Room #: History: abnormal LFT's Slices: 721 Priors: Tech: Lilliana Curiel @ [phone] Exams: CT ABDOMEN & PELVIS Without Contrast Contrast: Accession Numbers: [id number] Referring Physician: [facility] Preliminary Findings Only See Final Report For Complete Findings CT ABDOMEN & PELVIS Without Contrast: No definite acute abnormality. Equivocal gallbladder wall thickening versus artifact, not well evaluated by CT, consider ultrasound if there is clinical concern of acute gallbladder disease. No renal stones or obstruction. Normal appendix. No SBO, free air or free fluid. Radiologist: Margy Mchugh M.D. Study ready at 23:11 and initial results transmitted at 23:13 *This report constitutes a preliminary interpretation only. Non-acute findings felt to be unrelated to the clinical presentation may not be discussed in this report. The study will be interpreted and a final report will be generated by the local Radiologist the following shift. To reach the hospital radiology department call [phone]. If a discrepancy is found between the preliminary and final interpretations of this study, please notify us via our Client Portal at [email or web address].You can also fax this report with a description of the discrepancy, or include the final report, to our daytime fax number [phone].If faxing, please indicate the severity of discrepancy using one of the following categories: [ ] 1 - Agree/Informational [ ] 2 - Unlikely to Affect Management [ ] 3 - Possible Eventual Change of Management [ ] 4 - Probable Immediate Change of Management For all other patient related information, please fax us at [phone]. [id number] Code Status & VTE Plan Code Status Full code VTE Prophylaxis Plan VTE Prophylaxis will be ordered: Yes PG Care Time/CCT Total # of Minutes Spent Total Time Spent with Patient: Total time spent is greater than 50% in coordination of care (as documented) at patient's floor/unit and/or counseling patient: Coding Level of Care Code 75622 Initial Inpt Care Lvl 2 Diagnoses Abnormal LFTs R94.5 Jaundice R17 Hepatitis C antibody positive in blood R76.8 Right upper quadrant abdominal pain R10.11
[2020-10-21 23:59] LABS: Hepatitis B Surf Ag Rflx Conf Neg (Neg)
[2020-10-22] MEDS ORDERED: ONDANSETRON INJ 2 MG/ML 2 ML VIAL IV PRN (00:55)
[2020-10-22] MEDS: QUEtiapine FUMARATE 200 MG TAB PO SCH ×3 (01:51→21:05)
[2020-10-22] MEDS ORDERED: CALCIUM CARBONATE 500 MG CHEWABLE TAB PO PRN (02:08)
--- NOTE | 2020-10-22 06:43 | XRay Report ---
XR abdomen 2V w PA chest CLINICAL HISTORY: R flank/RUQ pain COMPARISON STUDY: Chest x-ray dated 11/07/2017 FINDINGS: Erect chest reveals no free air. There is no focal pulmonary consolidation. Erect and supin e views the abdomen reveal moderate colonic stool. There is no pathologic bowel dilatation. There are no transition zones to indicate a bowel obstruction. There are nonspecific pelvic basin calcificatio ns, which in the absence of renal colic likely represent phleboliths IMPRESSION: No evidence of bowel obstruction. No evidence of free air. ACT 112: Negative or not required by law. Electronically signed by: Stephen Bradford M.D. 10/22/2020 6:41 AM
--- NOTE | 2020-10-22 06:48 | Ultrasound Report ---
US gallbladder CLINICAL HISTORY: R flank/RUQ pain COMPARISON STUDY: Abdominal series October 21, 2020. FINDINGS: Liver is sonographically normal. There is no biliary ductal dilatation. The common bile rody t measures 3 mm in caliber. The gallbladder is contracted. No gallstones are noted. Mild gallbladder wall thickening is likely due to underdistention. The pancreas is unremarkable by sonography. There i s no right hydronephrosis. IMPRESSION: 1. No gallstones or biliary ductal dilatation. 2. Contracted gallbladder. ACT 112: Negative or not required by law. Electronically signed by: Colt Villalobos M.D. 10/22/2020 6:46 AM
--- NOTE | 2020-10-22 06:52 | CT Scan Report ---
CT OF THE ABDOMEN AND PELVIS WITHOUT CONTRAST CLINICAL HISTORY: abnormal LFT's COMPARISON STUDY: Abdominal series and right upper quadrant ultrasound October 21, 2020. TECHNIQUE: Axial images of the abdomen and pelvis were obtained without IV contrast. Images were revi ewed in the axial, sagittal, and coronal planes. Automated exposure control was utilized for the melissa dy. A dose lowering technique was utilized adhering to the principles of ALARA. FINDINGS: Lung bases are unremarkable. No pneumatosis, free air or portal venous gas is present. No r enal, ureteral or bladder calculi are present. Evaluation of the abdomen and pelvis is suboptimal on this unenhanced exam. Unenhanced images of the liver, spleen, adrenal glands and pancreas are unremar kable. There is no biliary or pancreatic ductal dilatation. There is no evidence for a bowel obstruct ion. There is no evidence for acute appendicitis. There is no free fluid. Pelvic calcifications repre sent phleboliths. No lymphadenopathy is identified on this unenhanced exam. No acute fracture or susp icious lesion is identified within the visualized skeletal structures. IMPRESSION: 1. No urinary calculi or hydronephrosis. 2. No acute process identified although evaluation compromised as unenhanced exam. 3. No evidence for acute appendicitis. No bowel obstruction. ACT 112: Negative or not required by law. Electronically signed by: Colt Villalobos M.D. 10/22/2020 6:51 AM
[2020-10-22 07:24] LABS: Basophils # (auto) 0.04 K/uL (0-0.2); Basophils % (auto) 0.5 %; Eosinophils # (auto) 0.44 K/uL (0-0.5); Eosinophils % (auto) 5.9 %; Hematocrit (blood only) 41.3 % (37-47); Hemoglobin 13.8 g/dL (12.0-16.0); Immature Granulocytes # (auto) 0.04 K/uL (0.00-0.02); Immature Granulocytes % (auto) 0.5 %; Lymphocytes # (auto) 2.67 K/uL (1.2-3.4); Lymphocytes % (auto) 35.6 %; Mean Corpuscular Hemoglobin 30.5 pg (25-34); Mean Corpuscular Hgb Conc 33.4 g/dL (32-36); Mean Corpuscular Volume 91.4 fL (80-100); Mean Platelet Volume 10.9 fL (7.4-10.4); Monocytes # (auto) 0.87 K/uL (0.11-0.59); Monocytes % (auto) 11.6 %; Neutrophils # (auto) 3.45 K/uL (1.4-6.5); Neutrophils % (auto) 45.9 %; Platelet Count 258 K/uL (130-400); RDW Standard Deviation 50.2 fL (36.4-46.3); Red Blood Count 4.52 M/uL (4.2-5.4); White Blood Count 7.51 K/uL (4.8-10.8)
[2020-10-22 07:40] LABS: Albumin Level 3.1 gm/dl (3.4-5.0); Calcium 8.6 mg/dl (8.5-10.1); Potassium 3.8 mmol/L (3.5-5.1)
[2020-10-22 08:13] LABS: Magnesium 1.8 mg/dl (1.8-2.4)
[2020-10-22 08:33] LABS: Albumin Globulin Ratio 0.8 (0.9-2); BUN Creatinine Ratio 12.1 (10-20); Bilirubin,Total 5.1 mg/dl (0.2-1); Creatinine Clr Calc Pharmacy 106.6 ml/min; Est GFR (African American) 135.2 ml/min; Est GFR (Non-African American) 116.7 ml/min; Globulin 3.7 gm/dl (2.5-4.0); Total Protein 6.8 gm/dl (6.4-8.2)
[2020-10-22] MEDS: SERTRALINE HCL 50 MG TABLET PO SCH (08:59)
--- NOTE | 2020-10-22 10:34 | Gastrointestinal Consultation ---
Date of Consultation October 22, 2020 Assessment & Plan (1) Right upper quadrant abdominal pain: (2) Abnormal LFTs: (3) Hepatitis C antibody positive in blood: (4) Jaundice: Patient is a 35 y.o. female with a history of drug abuse and positive Hep C antibody admitted with RUQ pain/jaundice and acute cholestatic hepatitis. DDx: viral vs toxin vs other. Suspect viral etiology, such as EBV/CMV as liver panel is trending down. * Check acetaminophen level, EBV and CMV serologies now. * Continue to trend liver panel. * Abstain from all liver toxins. * Agree with inpatient rehab upon discharge. * Continue supportive care. Thank you for allowing us to participate in the care of this patient. If you have any questions or concerns, please do not hesitate to contact us. Supervising Physician Co-Signing Physician Notes I personally evaluated the patient and agree with the findings as documented by BAR Coyle Exam: abd: soft, mild RUQ tenderness, nd History of Present Illness Reason for Consultation: Elevated liver panel Requesting Physician: Dr. Peña Attending Physician: French Spear DO History of Present Illness Patient is a 35 y.o. female with a history of drug abuse, currently incarcerated admitted to the hospital with several day history of RUQ and nausea. No vomiting. She also reports "I turned really yellow". She endorses fatigue, dark urine, acholic stools and dysgeusia. On arrival, she was found to have a profoundly elevated liver panel as follows: TB 5.0, DB 3.9, AST 1079, ALT 1449 and ALP 217. GB ultrasound without wall thickening, biliary ductal dilation or cholelithiasis. CT a/p demonstrated a normal liver without any intra or extrahepatic ductal dilation. Acute hepatitis serologies were ordered. Hep C prelim positive. Hep A and B are pending. Patient has a self reported history of [place]. No family history of chronic liver disease. Allergies Allergy/AdvReac Type Severity Reaction Status Date / Time No Known Allergies Allergy Verified 10/21/20 23:10 Home Medications Medication Instructions Recorded Confirmed Type quetiapine 200 mg tablet 200 mg PO BID 10/21/20 10/21/20 History sertraline 50 mg tablet 50 mg PO DAILY 10/21/20 10/21/20 History Patient History Medical History (Updated 10/22/20 @ 05:04 by Doc Peña MD) Altered mental status Surgical History No pertinent past surgical history Family History Other Seizure Social History (Updated 10/21/20 @ 21:12 by Ryan Brody) Smoking Status: Former smoker Second Hand Exposure: No; Do You Dip or Chew Tobacco: No; Tobacco Cessation Education Requested by Patient: No Hx Alcohol Use: No Hx Substance Use: Yes Non-Prescribed Medications: IV Drugs and Methamphetamines Last Used Substance: Days (ago) Last Used Substance Other:: September 20 Substance Use Type Other:: 10 months ago started IV drug use Preferred Language: Burkinan Acute Care Nursing Assistant Required: No Beliefs That Will Affect Care: None Current Living Situation Comment: Inmate Other Information That Helps Us Care for You: No Feels Safe at Home: Yes Safety Concerns: Feels Safe At This Time Assistive Devices: None Review of Systems Review of Systems: A 13 point review of systems was negative other than pertinent positives and negatives as per the HPI. Physical Exam Constitutional: WD/WN, vitals as above Eyes: EOM intact bilaterally (sclera icteric) Neck: normal appearance Respiratory: normal respiratory effort, lungs clear to auscultation Cardiovascular: Rate/Rhythm: regular rate and regular rhythm Heart Sounds: no gallop and no murmur Gastrointestinal (Abdomen): Inspection/Auscultation: abdomen normal to inspection and normal bowel sounds; abdomen not distended Percussion/Palpation: + abdomen tender (RUQ) and abdomen soft; no guarding, abdomen not rigid and no hepatosplenomegaly Musculoskeletal: Extremities: no cyanosis no lower extremity edema Skin: + jaundice Neurologic: moves all extremities Psychiatric: A+Ox3, euthymic affect Results & Data ([facility]) Vital Signs (Past 12 Hours) Vital Signs Temp Pulse Pulse Resp BP BP Pulse Ox 10/22/20 07:00 36.7 C 70 16 116/79 97 10/22/20 01:53 142/94 H 10/22/20 00:45 36.5 C 69 16 152/106 H 98 10/22/20 00:40 87 18 140/90 97 10/22/20 00:30 82 16 140/90 98 10/22/20 00:00 76 18 132/99 98 10/21/20 23:30 79 18 96 10/21/20 23:12 90 18 97 10/21/20 22:31 90 18 125/95 97 Laboratory Results Abnormal lab results 10/21/20 10/21/20 10/21/20 Range/Units 20:54 22:57 Unknown RDW Std Deviation 48.4 H (36.4-46.3) fL RDW Coeff of Ally 14.7 H (11.5-14.5) % MPV 10.7 H (7.4-10.4) fL [place] # (Auto) 0.95 H (0.11-0.59) K/uL Immature Gran # (Auto) 0.05 H (0.00-0.02) K/uL Chloride 108 H (98-107) mmol/L Total Bilirubin 5.0 H (0.2-1) mg/dl Direct Bilirubin 3.9 H (0-0.2) mg/dl AST 1079 H (15-37) U/L ALT 1449 H (12-78) U/L Alkaline Phosphatase 217 H (45-117) U/L Albumin (3.4-5.0) gm/dl Albumin/Globulin Ratio (0.9-2) Urine Bilirubin (Negative) Hepatitis C Antibody Prelim Pos A (Neg) 10/21/20 10/22/20 10/22/20 Range/Units Unknown 06:47 06:47 RDW Std Deviation 50.2 H (36.4-46.3) fL RDW Coeff of Ally 15.0 H (11.5-14.5) % MPV 10.9 H (7.4-10.4) fL [place] # (Auto) 0.87 H (0.11-0.59) K/uL Immature Gran # (Auto) 0.04 H (0.00-0.02) K/uL Chloride 109 H (98-107) mmol/L Total Bilirubin 5.1 H (0.2-1) mg/dl Direct Bilirubin (0-0.2) mg/dl AST 965 H (15-37) U/L ALT 1210 H (12-78) U/L Alkaline Phosphatase 190 H (45-117) U/L Albumin 3.1 L (3.4-5.0) gm/dl Albumin/Globulin Ratio 0.8 L (0.9-2) Urine Bilirubin 1+ H (Negative) Hepatitis C Antibody (Neg) PG Care Time/CCT Total # of Minutes Spent Total Time Spent with Patient: Total time spent is greater than 50% in coordination of care (as documented) at patient's floor/unit and/or counseling patient: Coding Level of Care Code 12499 Inpt Consult Level 4 Diagnoses Right upper quadrant abdominal pain R10.11 Abnormal LFTs R94.5 Hepatitis C antibody positive in blood R76.8 Jaundice R17
--- NOTE | 2020-10-22 14:08 | Hospitalist Progress Note ---
Date of Service October 22, 2020 Assessment & Plan (1) Abnormal LFTs: Plan: * Abnormal LFTs/jaundice/right upper quadrant abdominal pain radiating to right flank/new hepatitis C antibody positivity and blood- * Hepatitis C RNA quantitative laboratories pending now for follow-up * HIV testing done. * GI on board. Added CMV/EBV serologies. --> appreciate recommendations * add IV hydration * FU labs in the am * pending labs continue improving (no imminent liver failure), she does not become encephalopatihic, and her symptoms continue to improve--she can likely be D/C'ed to home with continued outpatient mgmt. (2) Jaundice: Plan: See above (3) Right upper quadrant abdominal pain: Plan: See above (4) Hepatitis C antibody positive in blood: Plan: See above Plan: * Patient has been continued on her Seroquel and Zoloft * Plan for suspected discharge within the next 24 to 48 hours * Plan of care will be discussed with Dr. Spear. Further orders as warranted. Admission and Anticipated Discharge Date Admission Date: October 21, 2020 Subjective Patient seen on daily rounds today. she is a 35 y/o currently incarcerated at [facility]. She was brought to the ED after c/o RUQ pain x 3 days and being jaundiced (noticed by other inmates and staff). She was found to have a TB of 5.0, DB of 3.9, AST/ALT of 1079/1449 along with an elevated alk phos. 217. She reports a 10 month h/o IV drug abuse and admits to sharing needles. Has been incarcerated since 09/20/20. No drug use since that time. Was Injecting Crystal methamphetamine. Admits to unprotected intercourse with the same person. CT of the abd and pelvis along with RUQ US was unremarkable. Did have a positive hepatitic C Antibody. The rest of her hepatitis panel is pending. Her labs values today are stable. AST/ALT are downtrending slightly. TB/DB remain stable. Has been seen by GI who has since ordered a CMV IgM/IgG, EBV and APAP level. Recommend continued supportive care. Patient currently complaining of continued right upper quadrant/flank pain but overall is improved. Denies fevers, chills, chest pain, shortness of breath, abdominal pain, nausea or vomiting. She is tolerating oral intake. Nursing voices no complaints or concerns. Review of Systems Review of Systems: All systems reviewed and are unremarkable except as noted in HPI and below + RUQ abdominal pain/flank pain as discussed above. Otherwise, denies fevers, chills, headache, nasal congestion, sore throat, cough, chest pain, shortness of breath, nausea, vomiting, dysuria, hematuria, frequency, skin lesions or rashes. Physical Exam Physical Exam: General: Resting comfortably in her hospital bed. Pleasant and cooperative. Does not appear ill or toxic HEENT:+ scleral icterus Neck: No JVD. Negative hepatojugular reflex Cardiac: RRR without M/G/R Lungs: CTA without W/R/R Abdomen: Normoactive X4. Abd soft. Mild RUQ tenderness otherwise nontender in other quadrants. Extremities: No peripheral clubbing cyanosis or edema Neuro: A&O X4 cranial nerves II through XII are grossly intact no focal neuro deficits Skin: jaundiced Results & Data Results & Data ([facility]) Vital Signs (Past 12 Hours) Vital Signs Temp Pulse Resp BP Pulse Ox 10/22/20 07:00 36.7 C 70 16 116/79 97 Laboratory Results 10/22/20 06:47 10/22/20 06:47 Diagnostic Findings RUQ US: IMPRESSION: 1. No gallstones or biliary ductal dilatation. 2. Contracted gallbladder. CT of the A/P IMPRESSION: 1. No urinary calculi or hydronephrosis. 2. No acute process identified although evaluation compromised as unenhanced exam. 3. No evidence for acute appendicitis. No bowel obstruction. PG Care Time/CCT Total # of Minutes Spent Total Time Spent with Patient: Total time spent is greater than 50% in coordination of care (as documented) at patient's floor/unit and/or counseling patient: [place] [address] Subseq Hosp Care Lvl 2 Patient Type Established History Expanded Problem Focused Exam Expanded Problem Focused Medical Decision Making Moderate Complexity Diagnoses Abnormal LFTs R94.5 Jaundice R17 Right upper quadrant abdominal pain R10.11 Hepatitis C antibody positive in blood R76.8
[2020-10-22] MEDS: SODIUM CHLORIDE 0.9% 1000ML 1,000 ML IV SCH ×2 (15:30→23:10)
[2020-10-22] MEDS: NICOTINE 14 MG/24 HR PATCH TD SCH (19:35)
[2020-10-22] MEDS ORDERED: LIDOCAINE 5% 1 PATCH TD STA (20:38)
[2020-10-23] MEDS: SODIUM CHLORIDE 0.9% 1000ML 1,000 ML IV SCH ×3 (06:10→21:59)
[2020-10-23] MEDS: NICOTINE 14 MG/24 HR PATCH TD SCH (08:45)
[2020-10-23] MEDS: QUEtiapine FUMARATE 200 MG TAB PO SCH (08:45)
[2020-10-23] MEDS: SERTRALINE HCL 50 MG TABLET PO SCH (08:45)
[2020-10-23 09:10] LABS: Basophils # (auto) 0.03 K/uL (0-0.2); Basophils % (auto) 0.5 %; Eosinophils # (auto) 0.39 K/uL (0-0.5); Hematocrit (blood only) 40.9 % (37-47); Immature Granulocytes # (auto) 0.04 K/uL (0.00-0.02); Immature Granulocytes % (auto) 0.6 %; Lymphocytes # (auto) 2.08 K/uL (1.2-3.4); Lymphocytes % (auto) 32.1 %; Mean Corpuscular Hemoglobin 31.1 pg (25-34); Mean Corpuscular Hgb Conc 34.2 g/dL (32-36); Mean Corpuscular Volume 90.9 fL (80-100); Mean Platelet Volume 10.7 fL (7.4-10.4); Monocytes % (auto) 13.9 %; Neutrophils # (auto) 3.04 K/uL (1.4-6.5); Neutrophils % (auto) 46.9 %; Platelet Count 255 K/uL (130-400); RDW Standard Deviation 49.9 fL (36.4-46.3); White Blood Count 6.48 K/uL (4.8-10.8)
[2020-10-23 09:21] LABS: Prothrombin Time 10.4 Seconds (9.0-12.0)
[2020-10-23 10:17] LABS: Albumin Globulin Ratio 0.8 (0.9-2); Albumin Level 3.1 gm/dl (3.4-5.0); BUN Creatinine Ratio 17.2 (10-20); Bilirubin Direct 4.1 mg/dl (0-0.2); Bilirubin,Total 4.9 mg/dl (0.2-1); Calcium 8.5 mg/dl (8.5-10.1); Creatinine Clr Calc Pharmacy 96.2 ml/min; Est GFR (African American) 127.5 ml/min; Globulin 3.7 gm/dl (2.5-4.0); Potassium 4.1 mmol/L (3.5-5.1); Total Protein 6.8 gm/dl (6.4-8.2)
--- NOTE | 2020-10-23 10:45 | Gastroenterology Progress Note ---
Date of Service October 23, 2020 Assessment & Plan (1) Right upper quadrant abdominal pain: (2) Abnormal LFTs: (3) Hepatitis C antibody positive in blood: (4) Jaundice: Plan: Patient is a 35 y.o. female with a history of drug abuse and positive Hep C antibody admitted with RUQ pain/jaundice and acute cholestatic hepatitis. DDx: viral vs toxin vs other. Suspect viral etiology, such as EBV/CMV as liver panel is trending down. * Normal acetaminophen level, viral serologies pending. * Continue to trend liver panel. * Abstain from all liver toxins. * Agree with inpatient rehab upon discharge. * Continue supportive care. Thank you for allowing us to participate in the care of this patient. If you have any questions or concerns, please do not hesitate to contact us. Admission and Anticipated Discharge Date Admission Date: October 21, 2020 Subjective Patient reports improved abdominal pain. No further nausea. Tolerating diet. Liver panel is stable. INR is normal. +jaundice. No pruritus. Viral serologies are pending. Review of Systems Constitutional: as per Subjective / HPI Gastrointestinal: as per Subjective / HPI Physical Exam Constitutional: WD/WN, vitals as above Eyes: EOM intact bilaterally (scleral icterus) Respiratory: normal respiratory effort, lungs clear to auscultation Cardiovascular: RRR, no murmur, no edema Gastrointestinal (Abdomen): normal bowel sounds, soft, nontender, no hepatosplenomegaly Skin: + jaundice Psychiatric: A+Ox3, euthymic affect Results & Data Results & Data ([facility]) Vital Signs (Past 12 Hours) Vital Signs Temp Pulse Resp BP Pulse Ox 10/23/20 07:24 36.6 C 67 16 124/83 98 Laboratory Results Abnormal lab results 10/23/20 10/23/20 Range/Units 08:34 08:34 RDW Std Deviation 49.9 H (36.4-46.3) fL RDW Coeff of Ally 15.0 H (11.5-14.5) % MPV 10.7 H (7.4-10.4) fL Kern # (Auto) 0.90 H (0.11-0.59) K/uL Immature Gran # (Auto) 0.04 H (0.00-0.02) K/uL Chloride 111 H (98-107) mmol/L Total Bilirubin 4.9 H (0.2-1) mg/dl Direct Bilirubin 4.1 H (0-0.2) mg/dl AST 1024 H (15-37) U/L ALT 1223 H (12-78) U/L Alkaline Phosphatase 211 H (45-117) U/L Albumin 3.1 L (3.4-5.0) gm/dl Albumin/Globulin Ratio 0.8 L (0.9-2) PG Care Time/CCT Total # of Minutes Spent Total Time Spent with Patient: Total time spent is greater than 50% in coordination of care (as documented) at patient's floor/unit and/or counseling patient: Coding Level of Care Code 51454 Subseq Hosp Care Lvl 3 Diagnoses Right upper quadrant abdominal pain R10.11 Abnormal LFTs R94.5 Hepatitis C antibody positive in blood R76.8 Jaundice R17
[2020-10-23 11:03] LABS: CMV IgM Antibody <30.00 AU/mL
[2020-10-23 12:25] LABS: EBV Nuclear Ag Antibody >600.00 U/mL
[2020-10-23] MEDS ORDERED: OPTIRAY 320 125ml IV ONE (13:27)
[2020-10-23 13:45] LABS: Hepatitis A Antibody IgM NON-REACTIVE (NON-REACTIVE); Hepatitis B Core Antibody IgM NON-REACTIVE (NON-REACTIVE); Hepatitis C Vira RNA (Log) PCR 6.23 Log IU/mL (NOT DETECTED); Hepatitis C Viral RNA by PCR 1710000 IU/mL (NOT DETECTED)
--- NOTE | 2020-10-23 13:45 | CT Scan Report ---
CT ANGIOGRAM OF THE CHEST CLINICAL HISTORY: Atypical chest pain. COMPARISON STUDY: Chest x-ray dated 10/21/2020. TECHNIQUE: Following the IV administration of 120 cc of Optiray 320, CT angiogram of the chest was pe rformed from the upper abdomen to the thoracic inlet utilizing the pulmonary embolus protocol. Images are reviewed in the axial, sagittal, and coronal planes. 3-D MIPS images are created and assessed. I V contrast was administered without complication. A dose lowering technique was utilized adhering to the principles of ALARA. CT DOSE: 251.94 mGycm FINDINGS: Thyroid: The thyroid gland is enlarged and heterogeneous. Thoracic aorta: The thoracic aorta is normal in caliber and demonstrates standard 3-vessel arch anato my. No dissection is seen. Pulmonary vasculature: The pulmonary trunk is normal in caliber. There are no filling defects identif ied in main, lobar, or segmental pulmonary branches to suggest pulmonary embolus. Heart: The heart is normal in size and without pericardial effusion. Lungs and pleural spaces: Emphysematous change is seen at the apices. The trachea and central airways are clear. There is no airspace consolidation typical for pneumonia or pleural effusion. Mild diffus e peribronchial thickening is observed. There is a 1.4 cm spiculated nodule at the left apex with greta tral cavitation seen on image #205. A 6 mm satellite nodule is seen on image #200. Only minimal groun dglass change is seen in this region. No additional pulmonary nodule is seen. Mild scarring/atelectas is is noted at the lung bases. Mediastinum: There is no mediastinal lymphadenopathy. Batsheva: Clear. Axillae: There is no axillary lymphadenopathy. Upper abdomen: Partially visualized upper abdominal viscera is within normal limits. Skeletal structures: No lytic or blastic bony lesions are seen. IMPRESSION: 1. There is no evidence of pulmonary embolus in the main, lobar, or segmental pulmonary arteries. 2. Emphysema. 3. There is a 1.4 cm spiculated nodule at the left apex with central cavitation and a subcentimeter s atellite nodule. Although this could represent an atypical infectious process or septic embolus, give n the appearance and associated emphysema a lung cancer is not excluded. A 1 month follow-up is recom mended chest CT is recommended for reassessment. 4. There is no airspace consolidation typical for pneumonia or pleural effusion. 5. Mild diffuse peribronchial thickening suggests bronchitis/reactive airway disease. Clinical correl ation will be required. ACT 112: Positive. There are findings on this exam that require communication between the performing entity and the patient following Patient Test Result Information Act ([place] Act 112) guidelines. Electronically signed by: Compa Mosher M.D. 10/23/2020 1:44 PM
--- NOTE | 2020-10-23 16:42 | Hospitalist Progress Note ---
Date of Service October 23, 2020 Assessment & Plan (1) Abnormal LFTs: Plan: * Abnormal LFTs/jaundice/right upper quadrant abdominal pain radiating to right flank/new hepatitis C antibody positivity--> GI on board and believes this to be acute cholestatic hepatitis * Hepatitis C RNA quantitative laboratories pending now * HIV testing done-pending. * Acute CMV- neg * Acetaminophen level less than 10 * EBVpending * I have added a copper level * GI on board. --> appreciate recommendations * Patient takes Seroquel 200 mg twice daily (X 20 years) which is hepatically cleared. I have reached out to psych for input regarding transition to an antipsychotic that is renally excreted. The recommendations are to transition straight to Invega 3mg BID. Appreciate these recommendations (2) Pulmonary nodule: Plan: * Spiculated lesion. Differential diagnosis includes malignancy, atypical infectious process, septic emboli * Will initiate azithromycin. Although it is hepatically cleared, it is less hepatically cleared than doxycycline. Need atypical coverage at this time. * Will obtain quantitative serum gold and AFB X3 * Place patient in airborne isolation * Assume patient was tested for TB upon her incarceration; however, that is part of the differential at this time * Will obtain an echocardiogram given concern for septic emboli and her history of IV drug abuse * Will consult pulmonologyappreciate recommendations patient was notified of these results (3) Jaundice: Plan: See above (4) Right upper quadrant abdominal pain: Plan: See above (5) Hepatitis C antibody positive in blood: Plan: See above Plan: * Plan of care discussed with Dr. Spear and with Dr. Nicholson Admission and Anticipated Discharge Date Admission Date: October 21, 2020 Subjective Seen on daily rounds today. In the overnight hours, has since developed a left- sided posterior pleuritic-like pain. Still with persistent yet mild pain in the right upper quadrant that has remained unchanged. Pain in the left side only there with deep inhalation. Denies fevers, cough, shortness of breath or hemoptysis. Thus far, her acetaminophen level has come normal. CMV IgG positive but IgM negative. Hepatitis a pending. Hepatitis C viral load pending. Patient notably on Seroquel (X 20 years). This is liver excreted. Diagnosed with bipolar prior to any drug abuse. Given the pleuritic-like pain, a CTA of the chest was performed that showed no evidence of PE but a spiculated lesion on the left was identified. See results as outlined below Review of Systems Review of Systems: All systems reviewed and are unremarkable except as noted in HPI and below Denies fevers, chills, headache, nasal congestion, sore throat, cough, chest pain, shortness of breath, abdominal pain, nausea, vomiting, dysuria, hematuria, frequency, skin lesions or rashes. Physical Exam Physical Exam: General: Resting comfortably in her hospital bed. NAD. HEENT: mild scleral icterus Neck: No JVD. Negative hepatojugular reflex Cardiac: RRR without M/G/R Lungs: CTA without W/R/R Abdomen: Normoactive X4. Soft with mild RUQ tenderness. Extremities: No peripheral clubbing cyanosis or edema Neuro: A&O X4 cranial nerves II through XII are grossly intact no focal neuro deficits Skin: No obvious skin lesions or rashes Results & Data Results & Data ([facility]) Vital Signs (Past 12 Hours) Vital Signs Temp Pulse Resp BP Pulse Ox 10/23/20 14:33 37.1 C 87 16 144/94 H 97 10/23/20 07:24 36.6 C 67 16 124/83 98 Laboratory Results 10/23/20 08:34 10/23/20 08:34 Total bilirubin: 4.9 AST 1024 ALT 1223 Alk phos 211 Acetaminophen: Less than 10 CMV IgG: Positive CMV IgM: Negative Rest of serology is pending Diagnostic Findings CTA: IMPRESSION: 1. There is no evidence of pulmonary embolus in the main, lobar, or segmental pulmonary arteries. 2. Emphysema. 3. There is a 1.4 cm spiculated nodule at the left apex with central cavitation and a subcentimeter satellite nodule. Although this could represent an atypical infectious process or septic embolus, given the appearance and associated emphysema a lung cancer is not excluded. A 1 month follow-up is recommended chest CT is recommended for reassessment. 4. There is no airspace consolidation typical for pneumonia or pleural effusion. 5. Mild diffuse peribronchial thickening suggests bronchitis/reactive airway dis ease. Clinical correlation will be required. PG Care Time/CCT Total # of Minutes Spent Total Time Spent with Patient: Total time spent is greater than 50% in coordination of care (as documented) at patient's floor/unit and/or counseling patient: Coding Level of Care Code 66492 Subseq Hosp Care Lvl 3 Diagnoses Abnormal LFTs R94.5 Jaundice R17 Right upper quadrant abdominal pain R10.11 Hepatitis C antibody positive in blood R76.8 Pulmonary nodule R91.1
[2020-10-23] MEDS ORDERED: AZITHROMYCIN 500 MG in DEXTROSE 5% 250 ML IV SCH (17:00)
[2020-10-23 17:21] LABS: Amphetamines+Metham, Urine Neg (Neg); Barbiturates, Urine Neg (Neg); Benzodiazepine, Urine Neg (Neg); Cocaine, Urine Neg (Neg); MDMA (Ecstacy), Urine Neg (Neg); Methadone, Urine Neg (Neg); Opiate, Urine Neg (Neg); Phencyclidine, Urine Neg (Neg)
[2020-10-23] MEDS: KETOROLAC TROMETHAMINE 15 MG/ML VIAL IV PRN (20:03)
[2020-10-23] MEDS: PALIPERIDONE 3 MG TABCR PO SCH (21:48)
[2020-10-23] MEDS: MELATONIN 3 MG TAB PO PRN (21:59)
[2020-10-24] MEDS: KETOROLAC TROMETHAMINE 15 MG/ML VIAL IV PRN ×3 (05:27→20:00)
[2020-10-24] MEDS: SODIUM CHLORIDE 0.9% 1000ML 1,000 ML IV SCH ×3 (05:27→20:02)
[2020-10-24 06:36] LABS: Basophils # (auto) 0.03 K/uL (0-0.2); Basophils % (auto) 0.4 %; Eosinophils % (auto) 6.7 %; Immature Granulocytes # (auto) 0.06 K/uL (0.00-0.02); Immature Granulocytes % (auto) 0.8 %; Lymphocytes # (auto) 2.49 K/uL (1.2-3.4); Lymphocytes % (auto) 33.6 %; Mean Corpuscular Hemoglobin 30.7 pg (25-34); Mean Corpuscular Hgb Conc 34.2 g/dL (32-36); Mean Corpuscular Volume 89.8 fL (80-100); Mean Platelet Volume 10.5 fL (7.4-10.4); Monocytes # (auto) 0.81 K/uL (0.11-0.59); Monocytes % (auto) 10.9 %; Neutrophils # (auto) 3.53 K/uL (1.4-6.5); Neutrophils % (auto) 47.6 %; Platelet Count 245 K/uL (130-400); RDW Standard Deviation 48.3 fL (36.4-46.3); Red Blood Count 4.23 M/uL (4.2-5.4); White Blood Count 7.42 K/uL (4.8-10.8)
[2020-10-24 06:52] LABS: Prothrombin Time 10.3 Seconds (9.0-12.0)
[2020-10-24 06:56] LABS: Albumin Level 2.9 gm/dl (3.4-5.0); BUN Creatinine Ratio 17.3 (10-20); Bilirubin Direct 3.4 mg/dl (0-0.2); Calcium 8.1 mg/dl (8.5-10.1); Creatinine Clr Calc Pharmacy 133.3 ml/min; Est GFR (African American) 145.5 ml/min; Est GFR (Non-African American) 125.5 ml/min; Magnesium 1.7 mg/dl (1.8-2.4); Potassium 3.8 mmol/L (3.5-5.1)
[2020-10-24 07:04] LABS: Albumin Globulin Ratio 0.9 (0.9-2); Bilirubin,Total 3.9 mg/dl (0.2-1); Globulin 3.3 gm/dl (2.5-4.0); Total Protein 6.2 gm/dl (6.4-8.2)
[2020-10-24] MEDS: NICOTINE 14 MG/24 HR PATCH TD SCH (09:11)
[2020-10-24] MEDS: SERTRALINE HCL 50 MG TABLET PO SCH (09:12)
[2020-10-24] MEDS: PALIPERIDONE 3 MG TABCR PO SCH ×2 (09:14→20:00)
[2020-10-24] MEDS ORDERED: MAGNESIUM OXIDE 400 MG TAB PO ONE (09:30)
--- NOTE | 2020-10-24 10:34 | Pulmonary Consultation ---
Date of Consultation October 24, 2020 Assessment & Plan (1) Pulmonary cavitary lesion: 35-year-old female with a history of IV drug abuse and multiple incarcerations who was found to have a left upper lobe cavitary lung lesion. She has a strong history of tobacco abuse since age of 13. Cavitary lung lesion: Agree with TB rule out including QuantiFERON gold testing and AFB sputum samples. HIV testing was negative. Echocardiogram without evidence of obvious vegetations. Blood cultures were not sent. I suspect the left lung lesion is likely infectious/inflammatory in nature (possible atypical infection), however, malignancy is certainly possible given her long smoking history. It is less likely though given her young age and lack of B symptoms. Recommend repeat CT chest in 4 to 6 weeks. She is currently on azithromycin. I will change her antibiotic to Augmentin for the gram-negative and anaerobic coverage. History of IV drug abuse: Set to undergo rehab after discharge from [facility]. Hepatitis C: Following with gastroenterology. Thank you for the consultation. Please call with questions. (2) History of intravenous drug abuse: (3) Hepatitis C antibody positive in blood: History of Present Illness Reason for Consultation: Cavitary lung lesion Attending Physician: Fermin Argueta MD History of Present Illness 35-year-old female who resides in [facility] who presented to the hospital due to right flank pain. She was found to be jaundiced as well. Hepatitis C antibodies are positive. She underwent a chest CTA yesterday due to atypical chest pain. She was found to have emphysema and a 1.4 cm spiculated left upper lobe lung nodule with central cavitation and satellite nodules. Echocardiogram was negative for vegetations. CMV and EBV antigens were positive. Hepatitis C viral load is very elevated. HIV testing negative. QuantiFERON gold testing pending. She notes that she has a chronic dull ache in her chest. She has abused numerous drugs by smoking and using IV drugs. She notes that she has shared needles in the past. Most recently she did this approximately 35 days ago. She describes that she has been in [facility] times for drug charges. She has been in rehab numerous times. She does smoke cigarettes and has smoked since the age of 13. She smoked roughly 1 pack/day. Her sister is in her 50s and she has COPD. She denies any fevers. She does have on and off night sweats that have been ongoing for months. Her weight is stable. Appetite is good. She does not know of any obvious contacts with tuberculosis. Allergies Allergy/AdvReac Type Severity Reaction Status Date / Time No Known Allergies Allergy Verified 10/21/20 23:10 Home Medications Medication Instructions Recorded Confirmed Type quetiapine 200 mg tablet 200 mg PO BID 10/21/20 10/21/20 History sertraline 50 mg tablet 50 mg PO DAILY 10/21/20 10/21/20 History Patient History Medical History (Updated 10/24/20 @ 11:55 by Glenn Reno MD) Altered mental status History of intravenous drug abuse Pulmonary cavitary lesion Surgical History No pertinent past surgical history Family History Other Seizure Social History (Updated 10/21/20 @ 21:12 by Ryan Brody) Smoking Status: Former smoker Second Hand Exposure: No; Do You Dip or Chew Tobacco: No; Tobacco Cessation Education Requested by Patient: No Hx Alcohol Use: No Hx Substance Use: Yes Non-Prescribed Medications: IV Drugs and Methamphetamines Last Used Substance: Days (ago) Last Used Substance Other:: September 20 Substance Use Type Other:: 10 months ago started IV drug use Preferred Language: [place] Communication Ability: Effective 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 Patient is in no apparent distress. Patient is well-developed. Eyes: Pupils are equal round and reactive to light. Conjunctivae are normal. Anicteric sclera. Neck: Trachea is midline. Visual inspection is normal. Respiratory: Clear to auscultation bilaterally. No use of accessory muscles. No significant clubbing noted. Cardiovascular: Regular rate and rhythm. No murmurs. No edema. Gastrointestinal: Normal bowel sounds, soft, nontender and nondistended. No hepatosplenomegaly noted. Musculoskeletal: No cyanosis. Patient is able to move all extremities. Strength is 5 out of 5 in the upper and lower extremities. Skin: No rashes, warm dry and intact. Neurologic: No obvious focal neurological deficits seen. Psychiatric: Alert and oriented x3 with a euthymic affect. Results & Data Results & Data ([facility]) Vital Signs (Past 12 Hours) Vital Signs Temp Pulse Resp BP Pulse Ox 10/24/20 07:25 97.7 F 84 16 122/82 96 10/23/20 23:39 98.1 F 88 20 123/84 95 vital signs, labs and imaging personally reviewed Diagnostic Findings Chest CTA from 10/23/2020 noted 1.4 cm spiculated left upper lobe nodule with cavitation. No mediastinal or hilar adenopathy noted. PG Care Time/CCT Total # of Minutes Spent Total Time Spent with Patient: Total time spent is greater than 50% in coordination of care (as documented) at patient's floor/unit and/or counseling patient: Coding Level of Care Code 60298 Inpt Consult Level 5 Diagnoses Pulmonary cavitary lesion J98.4 History of intravenous drug abuse F19.11 Hepatitis C antibody positive in blood R76.8
[2020-10-24] MEDS: AMOXICILLIN/CLAVULANATE 875 MG TAB PO SCH ×2 (13:31→19:59)
--- NOTE | 2020-10-24 17:08 | Hospitalist Progress Note ---
Date of Service October 24, 2020 Assessment & Plan (1) Abnormal LFTs: Plan: * Abnormal LFTs/jaundice/right upper quadrant abdominal pain radiating to right flank/new hepatitis C antibody positivity--> GI on board. ? Acute Phase of newly diagnosed Hep C * Hepatitis C RNA quantitative laboratories pending now * HIV testing done-pending. * Acute CMV- neg * Acetaminophen level less than 10 * EBVpending * I have added a copper level- pending * GI on board. --> appreciate recommendations * Seroquel changed to Invega with recommendations per psych (given hepatic clearance) (2) Pulmonary nodule: Plan: * Spiculated lesion. Differential diagnosis includes malignancy, atypical infectious process, septic emboli * Azithromycin added up front for atypical coverage. changed to Augmentin per pulm. * TB W/U done and pending * seen by pulm who is recommending FU CT 4-6 weeks. * Place patient in airborne isolation until TB ruled out * Assume patient was tested for TB upon her incarceration; however, that is part of the differential at this time * echocardiogram given concern for septic emboli and her history of IV drug abuse. Blood cultures added * D/C to rehab after ruled out for TB (3) Jaundice: Plan: See above. per GI, may take weeks for LFT's to downtrend. (4) Right upper quadrant abdominal pain: Plan: See above (5) Hepatitis C antibody positive in blood: Plan: See above will need to FU with GI to discuss treatment options for Hep C. Per GI, may take weeks for LFT's to recover. Likely acute phase. education given to patient and boyfriend about him needing testing d/t unprotected sex Plan: * Plan of care discussed with Dr. Argueta Admission and Anticipated Discharge Date Admission Date: October 21, 2020 Subjective Pt seen on daily rounds today. CT of the chest done yesterday for left-sided pleuritic pain showing concern for spiculated cavitation a lesion on the left. Patient afebrile without leukocytosis or hypoxemia. Again, patient does have a history of smoking crystal methamphetamine along with IV drug abuse. Echocardiogram orderedpending. QuantiFERON gold and AFB sputum obtainedpending. Patient was initially started on azithromycin for atypical coverage given atypical appearance of spiculated lesion. This has been transitioned to Augmentin by pulmonology. Today, still with mild left pleuritic pain but overall improved. LFTs stable. Review of Systems Review of Systems: All systems reviewed and are unremarkable except as noted in HPI and below Denies fevers, chills, headache, nasal congestion, sore throat, cough, chest pain, shortness of breath, abdominal pain, nausea, vomiting, dysuria, hematuria, frequency, skin lesions or rashes. Physical Exam Physical Exam: General: Resting comfortably in her hospital bed. NAD. HEENT: Mild scleral icterus Neck: No JVD. Negative hepatojugular reflex Cardiac: RRR without M/G/R Lungs: CTA without W/R/R Abdomen: Normoactive X4. Soft and nontender in all quadrants. Extremities: No peripheral clubbing cyanosis or edema Neuro: A&O X4 cranial nerves II through XII are grossly intact no focal neuro deficits Skin: No obvious skin lesions or rashes Results & Data Results & Data ([facility]) Vital Signs (Past 12 Hours) Vital Signs Temp Pulse Resp BP Pulse Ox 10/24/20 07:25 36.5 C 84 16 122/82 96 Laboratory Results 10/24/20 06:17 10/24/20 06:[address] of the chest: IMPRESSION: 1. There is no evidence of pulmonary embolus in the main, lobar, or segmental pulmonary arteries. 2. Emphysema. 3. There is a 1.4 cm spiculated nodule at the left apex with central cavitation and a subcentimeter satellite nodule. Although this could represent an atypical infectious process or septic embolus, given the appearance and associated emphysema a lung cancer is not excluded. A 1 month follow-up is recommended chest CT is recommended for reassessment. 4. There is no airspace consolidation typical for pneumonia or pleural effusion. 5. Mild diffuse peribronchial thickening suggests bronchitis/reactive airway disease. Clinical correlation will be required. PG Care Time/CCT Total # of Minutes Spent Total Time Spent with Patient: Total time spent is greater than 50% in coordination of care (as documented) at patient's floor/unit and/or counseling patient: [place] [address] Subseq Hosp Care Lvl 3 Patient Type Established History Detailed Exam Detailed Medical Decision Making Moderate Complexity Diagnoses Abnormal LFTs R94.5 Pulmonary nodule R91.1 Jaundice R17 Right upper quadrant abdominal pain R10.11 Hepatitis C antibody positive in blood R76.8
[2020-10-24] MEDS: MELATONIN 3 MG TAB PO PRN (19:59)
[2020-10-25] MEDS: KETOROLAC TROMETHAMINE 15 MG/ML VIAL IV PRN ×3 (04:01→20:39)
[2020-10-25] MEDS: SODIUM CHLORIDE 0.9% 1000ML 1,000 ML IV SCH ×2 (04:01→11:54)
[2020-10-25 08:15] LABS: Basophils # (auto) 0.03 K/uL (0-0.2); Basophils % (auto) 0.4 %; Eosinophils # (auto) 0.49 K/uL (0-0.5); Eosinophils % (auto) 6.8 %; Hemoglobin 13.7 g/dL (12.0-16.0); Immature Granulocytes # (auto) 0.06 K/uL (0.00-0.02); Immature Granulocytes % (auto) 0.8 %; Lymphocytes # (auto) 2.37 K/uL (1.2-3.4); Mean Corpuscular Hemoglobin 30.9 pg (25-34); Mean Corpuscular Hgb Conc 34.3 g/dL (32-36); Mean Corpuscular Volume 90.3 fL (80-100); Mean Platelet Volume 10.6 fL (7.4-10.4); Monocytes # (auto) 0.79 K/uL (0.11-0.59); Neutrophils # (auto) 3.45 K/uL (1.4-6.5); Platelet Count 285 K/uL (130-400); RDW Coefficient of Variation 15.2 % (11.5-14.5); RDW Standard Deviation 50.5 fL (36.4-46.3); Red Blood Count 4.43 M/uL (4.2-5.4); White Blood Count 7.19 K/uL (4.8-10.8)
[2020-10-25 08:32] LABS: Albumin Level 3.3 gm/dl (3.4-5.0); BUN Creatinine Ratio 11.3 (10-20); Calcium 9.1 mg/dl (8.5-10.1); Creatinine Clr Calc Pharmacy 111.8 ml/min; Est GFR (African American) 137.3 ml/min; Est GFR (Non-African American) 118.5 ml/min; Potassium 3.9 mmol/L (3.5-5.1)
[2020-10-25 08:51] LABS: Albumin Globulin Ratio 0.9 (0.9-2); Bilirubin,Total 3.3 mg/dl (0.2-1); Globulin 3.8 gm/dl (2.5-4.0); Total Protein 7.1 gm/dl (6.4-8.2)
[2020-10-25] MEDS: AMOXICILLIN/CLAVULANATE 875 MG TAB PO SCH ×2 (09:28→16:44)
[2020-10-25] MEDS: SERTRALINE HCL 50 MG TABLET PO SCH (09:28)
[2020-10-25] MEDS: PALIPERIDONE 3 MG TABCR PO SCH ×2 (09:28→20:39)
[2020-10-25] MEDS: NICOTINE 14 MG/24 HR PATCH TD SCH (09:28)
[2020-10-25] MEDS: MAGNESIUM OXIDE 400 MG TAB PO SCH (09:28)
--- NOTE | 2020-10-25 15:21 | Hospitalist Progress Note ---
Date of Service October 25, 2020 Assessment & Plan (1) Abnormal LFTs: Plan: * Abnormal LFTs/jaundice/right upper quadrant abdominal pain radiating to right flank/new hepatitis C antibody positivity--> GI on board. Suspect Acute Phase of newly diagnosed Hep C * Hepatitis viral load at 171,000. Hepatitis a IgM antibody negative. Hepatitis B antigen nonreactive. Hepatitis B core IgM antibody nonreactive. * HIV testing done-pending. * Acute CMV- neg * Acetaminophen level less than 10 * EBVIgM negative, IgG positive showing old infection * Copper level pending * RUQ ultrasound and CT scanunremarkable * Seroquel changed to Invega with recommendations per psych (given hepatic clearance) * Suspect elevated LFTs due to acute hepatitis phase. Seen by GI who has since signed off. Reports may take weeks for levels to return to normal. As long as patient is not having significant symptomatology including encephalopathy, severe pruritus, intractable nausea and vomiting, tremors, or edemathis can be managed as an outpatient. Will need to follow-up with GI to determine treatment plan for hepatitis C (2) Pulmonary nodule: Plan: * Spiculated lesion. Differential diagnosis includes malignancy, atypical infectious process, septic emboli * Azithromycin added up front for atypical coverage. changed to Augmentin per pulm. * TB W/U done and pending * seen by pulm who is recommending FU CT 4-6 weeks. * Place patient in airborne isolation until TB ruled out * Assume patient was tested for TB upon her incarceration; however, that is part of the differential at this time * echocardiogram does not show evidence of vegetation. Blood cultures pending * Infectious process favored * D/C to rehab after ruled out for TB (3) Jaundice: Plan: See above. per GI, may take weeks for LFT's to downtrend. (4) Right upper quadrant abdominal pain: Plan: See above (5) Hepatitis C antibody positive in blood: Plan: See above will need to FU with GI to discuss treatment options for Hep C. Per GI, may take weeks for LFT's to recover. Likely acute phase. education given to patient and boyfriend about him needing testing d/t unprotected sex Plan: * Plan of care discussed with Dr. Argueta * Can be discharged once TB ruled out * Plan is for discharge to inpatient rehab (patient has been in contact with admissions and case management on board) Admission and Anticipated Discharge Date Admission Date: October 21, 2020 Subjective Patient seen on daily rounds today. Vocalizes no significant complaints or concerns. Left-sided pleuritic pain seems to "be easing". Was a 7/10 and is now rated as a 4/10. Denies cough, shortness of breath. Has been afebrile. No subjective fevers or chills. Hepatitis C viral load has come back at 171,000 Hepatitis A/B negative Her HIV 1 and 2 is negative QuantiFERON and AFB testing pending Echocardiogram showing no obvious vegetation Blood cultures pending Review of Systems Review of Systems: All systems reviewed and are unremarkable except as noted in HPI and below Denies fevers, chills, headache, nasal congestion, sore throat, cough, chest pain, shortness of breath, abdominal pain, nausea, vomiting, dysuria, hematuria, frequency, skin lesions or rashes. Physical Exam Physical Exam: General: Resting comfortably in her hospital bed. NAD. Neck: No JVD. Negative hepatojugular reflex Cardiac: RRR without M/G/R Lungs: CTA without W/R/R Abdomen: Normoactive X4. Soft and nontender in all quadrants. Extremities: No peripheral clubbing cyanosis or edema Neuro: A&O X4 cranial nerves II through XII are grossly intact no focal neuro deficits Skin: No obvious skin lesions or rashes Results & Data Results & [facility] ([facility]) Vital Signs (Past 12 Hours) Vital Signs Temp Pulse Resp BP BP Pulse Ox 10/25/20 11:50 36.9 C 86 16 147/97 H 148/97 H 97 Laboratory Results 10/25/20 07:56 10/25/20 07:56 T Bili: 3.3 AST: 975 ALT: 1205 Alk phos: 216 Echocardiogram showing no obvious vegetation. EF 65 to 70%. Valves appear normal PG Care Time/CCT Total # of Minutes Spent Total Time Spent with Patient: Total time spent is greater than 50% in coordination of care (as documented) at patient's floor/unit and/or counseling patient: [place] [address] Subseq Hosp Care Lvl 2 Patient Type Established Medical Decision Making Moderate Complexity Diagnoses Abnormal LFTs R94.5 Pulmonary nodule R91.1 Jaundice R17 Right upper quadrant abdominal pain R10.11 Hepatitis C antibody positive in blood R76.8
[2020-10-25 16:01] LABS: Quantiferon Mitogen-NIL >10.00 IU/mL; Quantiferon TB Gold Plus NEGATIVE (NEGATIVE); Quantiferon TB1-NIL <0.00 IU/mL; Quantiferon TB2-NIL <0.00 IU/mL
[2020-10-25] MEDS: MELATONIN 3 MG TAB PO PRN (20:39)
[2020-10-26] MEDS: MAGNESIUM OXIDE 400 MG TAB PO SCH (07:47)
[2020-10-26] MEDS: PALIPERIDONE 3 MG TABCR PO SCH (07:47)
[2020-10-26] MEDS: SERTRALINE HCL 50 MG TABLET PO SCH (07:47)
[2020-10-26] MEDS: AMOXICILLIN/CLAVULANATE 875 MG TAB PO SCH ×2 (07:47→18:05)
[2020-10-26] MEDS: NICOTINE 14 MG/24 HR PATCH TD SCH (07:47)
[2020-10-26] MEDS: KETOROLAC TROMETHAMINE 15 MG/ML VIAL IV PRN ×2 (07:48→15:26)
--- NOTE | 2020-10-26 09:32 | Hospitalist Progress Note ---
Date of Service October 26, 2020 Assessment & Plan (1) Abnormal LFTs: Plan: * Abnormal LFTs/jaundice/right upper quadrant abdominal pain radiating to right flank/new hepatitis C antibody positivity--> GI on board. Suspect Acute Phase of newly diagnosed Hep C * Hepatitis viral load at 171,000. Hepatitis a IgM antibody negative. Hepatitis B antigen nonreactive. Hepatitis B core IgM antibody nonreactive. * HIV testing done-pending. * Acute CMV- neg * Acetaminophen level less than 10 * EBVIgM negative, IgG positive showing old infection * Copper level pending * RUQ ultrasound and CT scanunremarkable * Seroquel changed to Invega with recommendations per psych (given hepatic clearance) * Suspect elevated LFTs due to acute hepatitis phase. Seen by GI who has since signed off. Reports may take weeks for levels to return to normal. As long as patient is not having significant symptomatology including encephalopathy, severe pruritus, intractable nausea and vomiting, tremors, or edemathis can be managed as an outpatient. Will need to follow-up with GI to determine treatment plan for hepatitis C (2) Pulmonary nodule: Plan: * Spiculated lesion. Differential diagnosis includes malignancy, atypical infectious process, septic emboli * Azithromycin added up front for atypical coverage. changed to Augmentin per pulm. * TB W/U done and pending * seen by pulm who is recommending FU CT 4-6 weeks. * Place patient in airborne isolation until TB ruled out * Assume patient was tested for TB upon her incarceration; however, that is part of the differential at this time * echocardiogram does not show evidence of vegetation. Blood cultures pending * Infectious process favored * D/C to rehab after ruled out for TB (3) Jaundice: Plan: See above. per GI, may take weeks for LFT's to downtrend. (4) Right upper quadrant abdominal pain: Plan: See above (5) Hepatitis C antibody positive in blood: Plan: See above will need to FU with GI to discuss treatment options for Hep C. Per GI, may take weeks for LFT's to recover. Likely acute phase. education given to patient and boyfriend about him needing testing d/t unprotected sex Plan: * Plan of care discussed with Dr. Argueta * Can be discharged once TB ruled out * Plan is for discharge to inpatient rehab (patient has been in contact with admissions and case management on board) Admission and Anticipated Discharge Date Admission Date: October 21, 2020 Results & Data Results & Data ([facility]) Vital Signs (Past 12 Hours) Vital Signs Temp Pulse Resp BP Pulse Ox 10/26/20 07:44 36.7 C 75 16 142/98 H 97 Laboratory Results 10/23/20 Range/Units 16:49 TB Test (QFT) Gold Plus NEGATIVE (NEGATIVE) TB Test (QFT) Nil 0.10 IU/mL TB Test Mitogen - Nil >10.00 IU/mL TB Test Ag - Nil 1 <0.00 IU/mL TB Test Ag - Nil 2 <0.00 IU/mL PG Care Time/CCT Total # of Minutes Spent Total Time Spent with Patient: Total time spent is greater than 50% in coordination of care (as documented) at patient's floor/unit and/or counseling patient: Coding Diagnoses Abnormal LFTs R94.5 Pulmonary nodule R91.1 Jaundice R17 Right upper quadrant abdominal pain R10.11 Hepatitis C antibody positive in blood R76.8
[2020-10-26 10:29] LABS: Hematocrit (blood only) 39.7 % (37-47); Hemoglobin 13.7 g/dL (12.0-16.0); Mean Corpuscular Hemoglobin 30.9 pg (25-34); Mean Corpuscular Hgb Conc 34.5 g/dL (32-36); Mean Corpuscular Volume 89.6 fL (80-100); Mean Platelet Volume 10.6 fL (7.4-10.4); Platelet Count 304 K/uL (130-400); RDW Standard Deviation 48.9 fL (36.4-46.3); Red Blood Count 4.43 M/uL (4.2-5.4); White Blood Count 8.59 K/uL (4.8-10.8)
[2020-10-26 11:02] LABS: Albumin Level 3.4 gm/dl (3.4-5.0); BUN Creatinine Ratio 14.6 (10-20); Calcium 9.2 mg/dl (8.5-10.1); Creatinine Clr Calc Pharmacy 92.4 ml/min; Est GFR (African American) 121.4 ml/min; Est GFR (Non-African American) 104.7 ml/min; Potassium 3.8 mmol/L (3.5-5.1)
[2020-10-26 11:09] LABS: Bilirubin,Total 2.9 mg/dl (0.2-1); Total Protein 7.3 gm/dl (6.4-8.2)
[2020-10-26] MEDS ORDERED: amLODIPine BESYLATE 5 MG TAB PO ONE (15:15)
--- NOTE | 2020-10-26 16:01 | Discharge Summary ---
Date of Service October 26, 2020 Admission HPI Per Admitting Provider The patient is a 35-year-old resident of [facility], with a past medical history including depression, who presents to the emergency department with the above complaint. She does report a history of drug abuse, but denies any regular alcohol use and does not take in a lot of Tylenol. Pertinent laboratories in the emergency department: Total bilirubin 5.0, direct bilirubin 3.9, AST 1079, ALT 1449 and alkaline phosphatase 217. Follow-up laboratories include the following: COVID-19 negative, hepatitis A IgM pending, hepatitis B surface antigen negative, hepatitis B core IgM antibody pending and hepatitis C antibody preliminarily positive, with RNA PCR pending Gallbladder ultrasound was normal. CT scan of abdomen and pelvis CT scan of abdomen and pelvis without contrast was negative Admission Exam Per Admitting Provider The patient is awake, alert and oriented 3, well developed and well nourished, normocephalic and atraumatic, lying in bed and in no acute distress. HEENT--PERRL, EOMI, mucous membranes and oropharynx normal. Neck--supple. No JVD. No bruits. Thyroid normal, trachea midline, no adenopathy. Heart--normal S1 and S2. No murmurs, rubs or gallops. Lungs--clear bilaterally, no respiratory distress, no accessory muscle use. Abdomen--normal bowel sounds and soft. Mild right upper quadrant and right flank pain with palpation. Extremities--no cyanosis or clubbing. No edema. Dermatologic--normal skin turgor, normal color, no abnormal lymph nodes, no rash. Neurologic--cranial nerves II through XII grossly intact. Rheumatologic--normal range of motion. Psychiatric--normal affect. Principal Diagnosis Hepatitis C, Cavitary Pulmonary Lesion Discharge Exam Constitutional well developed and well nourished; no acute distress Eyes PERRL; no eyelid abnormality ENMT Ears: + hearing impairment Neck trachea midline, no thyromegaly Respiratory normal respiratory effort, lungs clear to auscultation Cardiovascular RRR, no murmur, no edema Gastrointestinal (Abdomen) normal bowel sounds, soft, nontender, no hepatosplenomegaly Musculoskeletal no cyanosis or clubbing, extremities motor strength 5/5 Skin warm, dry Neurologic PERRL, EOMI, accommodation nl, no face palsy, no dysarthria Psychiatric Orientation: alert and oriented x 3 (anxious about discharge) Lymphatic no cervical or axillary lymphadenopathy Discharge Data Allergies Allergy/AdvReac Type Severity Reaction Status Date / Time No Known Allergies Allergy Verified 10/21/20 23:10 Consultations 10/21/20 22:21 ED Decision to Admit Stat 10/22/20 00:55 Consult Gastroenterology Routine 10/23/20 16:45 Consult Pulmonology Routine Ordered Studies Chest/Abdomen X-ray 10/21/20 20:42 XR abdomen 2V w PA chest CLINICAL HISTORY: R flank/RUQ pain COMPARISON STUDY: Chest x-ray dated 11/07/2017 FINDINGS: Erect chest reveals no free air. There is no focal pulmonary con solidation. Erect and supine views the abdomen reveal moderate colonic stool. There is no pathologic bowel dilatation. There are no transition zones to indicate a bowel obstruction. There are nonspecific pelvic basin calcifications, which in the absence of renal colic likely represent phleboliths IMPRESSION: No evidence of bowel obstruction. No evidence of free air. ACT 112: Negative or not required by law. Electronically signed by: Stephen Bradford M.D. 10/22/2020 6:41 AM Gallbladder Ultrasound 10/21/20 20:42 US gallbladder CLINICAL HISTORY: R flank/RUQ pain COMPARISON STUDY: Abdominal series October 21, 2020. FINDINGS: Liver is sonographically normal. There is no biliary ductal dilatation. The common bile duct measures 3 mm in caliber. The gallbladder is contracted. No gallstones are noted. Mild gallbladder wall thickening is likely due to underdistention. The pancreas is unremarkable by sonography. There is no right hydronephrosis. IMPRESSION: 1. No gallstones or biliary ductal dilatation. 2. Contracted gallbladder. ACT 112: Negative or not required by law. Electronically signed by: Colt Villalobos M.D. 10/22/2020 6:46 AM Abdomen/Pelvis CT 10/21/20 22:31 CT OF THE ABDOMEN AND PELVIS WITHOUT CONTRAST CLINICAL HISTORY: abnormal LFT's COMPARISON STUDY: Abdominal series and right upper quadrant ultrasound October 21, 2020. TECHNIQUE: Axial images of the abdomen and pelvis were obtained without IV contrast. Images were reviewed in the axial, sagittal, and coronal planes. Automated exposure control was utilized for the study. A dose lowering technique was utilized adhering to the principles of ALARA. FINDINGS: Lung bases are unremarkable. No pneumatosis, free air or portal venous gas is present. No renal, ureteral or bladder calculi are present. Evaluation of the abdomen and pelvis is suboptimal on this unenhanced exam. Unenhanced images of the liver, spleen, adrenal glands and pancreas are unremarkable. There is no biliary or pancreatic ductal dilatation. There is no evidence for a bowel obstruction. There is no evidence for acute appendicitis. There is no free fluid. Pelvic calcifications represent phleboliths. No lymphadenopathy is identified on this unenhanced exam. No acute fracture or suspicious lesion is identified within the visualized skeletal structures. IMPRESSION: 1. No urinary calculi or hydronephrosis. 2. No acute process identified although evaluation compromised as unenhanced exam. 3. No evidence for acute appendicitis. No bowel obstruction. ACT 112: Negative or not required by law. Electronically signed by: Colt Villalobos M.D. 10/22/2020 6:51 AM Chest CTA 10/23/20 11:36 CT ANGIOGRAM OF THE CHEST CLINICAL HISTORY: Atypical chest pain. COMPARISON STUDY: Chest x-ray dated 10/21/2020. TECHNIQUE: Following the IV administration of 120 cc of Optiray 320, CT won ogram of the chest was performed from the upper abdomen to the thoracic inlet utilizing the pulmonary embolus protocol. Images are reviewed in the axial, sagittal, and coronal planes. 3-D MIPS images are created and assessed. IV contrast was administered without complication. A dose lowering technique was utilized adhering to the principles of ALARA. CT DOSE: 251.94 mGycm FINDINGS: Thyroid: The thyroid gland is enlarged and heterogeneous. Thoracic aorta: The thoracic aorta is normal in caliber and demonstrates standard 3-vessel arch anatomy. No dissection is seen. Pulmonary vasculature: The pulmonary trunk is normal in caliber. There are no filling defects identified in main, lobar, or segmental pulmonary branches to suggest pulmonary embolus. Heart: The heart is normal in size and without pericardial effusion. Lungs and pleural spaces: Emphysematous change is seen at the apices. The trachea and central airways are clear. There is no airspace consolidation typical for pneumonia or pleural effusion. Mild diffuse peribronchial thickening is observed. There is a 1.4 cm spiculated nodule at the left apex with central cavitation seen on image #205. A 6 mm satellite nodule is seen on image #200. Only minimal groundglass change is seen in this region. No additional pulmonary nodule is seen. Mild scarring/atelectasis is noted at the lung bases. Mediastinum: There is no mediastinal lymphadenopathy. Batsheva: Clear. Axillae: There is no axillary lymphadenopathy. Upper abdomen: Partially visualized upper abdominal viscera is within normal limits. Skeletal structures: No lytic or blastic bony lesions are seen. IMPRESSION: 1. There is no evidence of pulmonary embolus in the main, lobar, or segmental pulmonary arteries. 2. Emphysema. 3. There is a 1.4 cm spiculated nodule at the left apex with central cavitation and a subcentimeter satellite nodule. Although this could represent an atypical infectious process or septic embolus, given the appearance and associated emphysema a lung cancer is not excluded. A 1 month follow-up is recommended chest CT is recommended for reassessment. 4. There is no airspace consolidation typical for pneumonia or pleural effusion. 5. Mild diffuse peribronchial thickening suggests bronchitis/reactive airway disease. Clinical correlation will be required. ACT 112: Positive. There are findings on this exam that require communication between the performing entity and the patient following Patient Test Result Information Act ([place] Act 112) guidelines. Electronically signed by: Compa Mosher M.D. 10/23/2020 1:44 PM Hospital Course (1) Abnormal LFTs: Abnormal LFTs/jaundice/right upper quadrant abdominal pain radiating to right flank/new hepatitis C antibody positivity--> GI on board. Suspect Acute Phase of newly diagnosed Hep C Hepatitis viral load at 171,000. Hepatitis a IgM antibody negative. Hepatitis B antigen nonreactive. Hepatitis B core IgM antibody nonreactive. HIV testing done- negative Acute CMV- neg Acetaminophen level less than 10 EBVIgM negative, IgG positive showing old infection Copper level pending at time of discharge RUQ ultrasound and CT scanunremarkable Seroquel changed to Invega with recommendations per psych (given hepatic clearance) --> continued at discharge and assisted able to have available after report given Will need follow up with GI in the next month as discussed with patient and medical command for hand off/sign-out for further determination of treatment of the Hep C LFTs can remain elevated for weeks --> trending down prior to d/c (2) Pulmonary nodule: Spiculated lesion. Differential diagnosis includes malignancy, atypical i nfectious process, septic emboli Azithromycin added up front for atypical coverage. changed to Augmentin per pulmology consultation and to complete course with such AFB pending however quantiferon gold testing NEGATIVE prior to d/c Recommend follow up imaging in [address] chest given smoking history and recommendations by radiology however pulmonary believes this favors infectious process ECHO without vegetation (hx IVDU and plans for 6 months rehab once released from assisted) Blood cultures NGTD (3) Jaundice: See above. per GI, may take weeks for LFT's to downtrend. (4) Right upper quadrant abdominal pain: See above (5) Hepatitis C antibody positive in blood: See above will need to FU with GI to discuss treatment options for Hep C. Per GI, may take weeks for LFT's to recover. Likely acute phase. education given to patient and boyfriend about him needing testing d/t unprotected sex Discussed with [facility] command at assisted as patient on furlough and told that she was able to arrange her own transportation back to assisted. Confirmed and patient informed. Patient to complete 6 month stay at rehab once released from assisted. Copy of chart to be made available to patient once released. Total Time Total Time Spent Total Time Spent (In Minutes): 60 Discharge Plan Discharge Items [facility] Disposition[facility] Reason For Visit: ABNORMAL LFT'S, JAUNDICE Discharge Diagnosis: Cavitary Lesion, Hepatits C Goals: You have been hospitalized for an acute medical problem. During your stay at [facility], we have made an effort to correct the problem that brought you to the hospital while keeping you as comfortable as possible. Medications were used to bring your condition under control and your discharge instructions will include directions for any medications you should take after leaving the hospital. Please make sure you see your Primary Care Provider as part of your follow up plan. Activity: Resume your previous activity Non-emergency contact: Primary Care Provider Call non-emergency contact if: you have any medication questions, your symptoms worsen and your pain is not controlled Follow-up/Referrals: PCP,NO [Primary Care Provider] - Diet: Regular Addtl Attending Provider Instructions: You have been hospitalized for abdominal pain. You were seen by gastroenterology and labs revealed you were positive for Hepatitis C. Your liver enzymes should normalize over the next couple of weeks and you will need follow up with them 3-4 weeks to discuss treatment options. You should avoid tylenol for pain and instead utilize motrin or toradol for pain as needed. Imaging of your chest showed a cavitary lesion. You were evaluated by pulmonary team and started on Augmentin (you will complete 7 day course) and will need repeat CT chest in one month to re-evaluate. You have been switched from Quetiapine to Invega 3mg by mouth twice daily to avoid worsening damage to your kidney as the quetiapine is cleared primarily by the liver. You will be discharged back to long term and then transition to rehab. Please follow up with your primary care provider in the next month to monitor your progress as well as follow up with the above specialists and follow up imaging. Please return to the nearest emergency department with any increased pain, fever, chest pain/shortness of breath, or for any other symptoms that are concerning for you. It has been a pleasure being a part of the medical team providing for you while you have been in the hospital. Take care! Pending Studies at Discharge: Yes Studies:: AFB culture Stand-Alone Forms: My [facility] Skilled Items Patient informed of condition?: Yes Discharge Level of Care: Other Communicable Disease: No Discharge Prognosis: Stable Lines: None Urinary Catheter: No Medications and DC Order Prescriptions: New amoxicillin-pot clavulanate [Augmentin] 875-125 mg Tablet 1 tab PO BIDM Qty: 9 RF: 0 paliperidone [Invega] 3 mg Tablet Extended Release 24hr 3 mg PO BID Qty: 60 RF: 0 calcium carbonate [Tums] 200 mg calcium (500 mg) Tablet,Chewable 1,500 mg PO BID PRN (Reason: dyspepsia) Qty: 10 RF: 0 magnesium oxide 400 mg (241.3 mg magnesium) Tablet 400 mg PO QAM Qty: 30 RF: 0 Continued sertraline 50 mg Tablet 50 mg PO DAILY RF: 0 Discontinued quetiapine 200 mg tablet 200 mg PO BID RF: 0 Discharge Orders: Discharge Order (Routine); Ordered 10/26/20 Ordered By: Maria Del Carmen Michelle Admission Data Admit Date/Time: 10/21/20 23:36 Attending Provider: Rainer Iraheta Admit Provider: Doc Peña Primary Care Provider: PCP,NO Other Providers: Doc Peña ; Sunday Sánchez ; Glenn Reno Other Interventions: Discharge Summary Assessment (RN) Last Done: 10/26/20 17:24 Coding Level of Care Code D/C DAY MANAGEMENT >30 MINS Diagnoses Abnormal LFTs R94.5 Pulmonary nodule R91.1 Jaundice R17 Right upper quadrant abdominal pain R10.11 Hepatitis C antibody positive in blood R76.8
--- NOTE | 2020-10-26 16:39 | Pulmonology Progress Note ---
Date of Service October 26, 2020 Assessment & Plan (1) Pulmonary cavitary lesion: Plan: 35-year-old female with a history of IV drug abuse and multiple incarcerations who was found to have a left upper lobe cavitary lung lesion. She has a strong history of tobacco abuse since age of 13. --Left upper lobe cavitary lung lesion Gold QuantiFERON negative [employer] sputum smear negative HIV negative Echocardiogram without evidence of obvious vegetations. Patient has no B symptoms. No cough. Kidney function is within normal limit. I do not think there is a need to think about autoimmune processes currently If on the repeat CT patient still has the cavitary lesion then bronchoscopy could be thought of as an outpatient. --Active tobacco use Encouraged to quit --Acute hep C Plan: Gold QuantiFERON is negative Recommend continue with antibiotics for total of 14 days Will need repeat CT chest done in 4-6 weeks to look at the left upper lobe cavitary lesion No further recommendations from pulmonary perspective. Call directly with any questions. Please note the above document was generated using voice recognition software. It may contain grammatical, syntax or spelling errors.Any formal questions or concerns about the content, text or information contained within the body of this dictation should be directly addressed to the provider for clarification. (2) History of intravenous drug abuse: (3) Hepatitis C antibody positive in blood: Admission and Anticipated Discharge Date Admission Date: October 21, 2020 Subjective Patient seen and examined at bedside. No acute distress, no adverse events overnight. Patient denies any cough. Denies any chest pain. No headache, no nausea or vomiting. Afebrile. Fair appetite. Review of Systems Review of Systems: All systems reviewed & are unremarkable except as noted in Subjective Physical Exam Physical Exam: Constitutional: No acute distress HEENT: EOMI, PERRLA Respiratory system: Good air entry bilaterally, no wheeze, no rhonchi, no crackles CVS: S1-S2 positive, no murmurs or gallops Abdomen: Soft, nontender, nondistended, positive bowel sounds x4 Extremities: +2 pulses bilaterally radialis/ dorsalis pedis, no cyanosis, no edema Neuro: Awake alert oriented x3 Psych: Normal mood and affect G/U: No Vaughn Skin: no rashes, warm and dry Lymphatic: no cervical or axillary lymphadenopathy Results & Data Results & Data ([facility]) Vital Signs (Past 12 Hours) Vital Signs Temp Pulse Resp BP Pulse Ox 10/26/20 15:26 36.7 C 98 H 16 142/93 H 96 10/26/20 07:44 36.7 C 75 16 142/98 H 97 10/26/20 10:03 10/26/20 10:03 PG Care Time/CCT Total # of Minutes Spent Total Time Spent with Patient: Total time spent is greater than 50% in coordination of care (as documented) at patient's floor/unit and/or counseling patient: Coding Level of Care Code 34717 Subseq Hosp Care Lvl 2 Diagnoses Pulmonary cavitary lesion J98.4 History of intravenous drug abuse F19.11 Hepatitis C antibody positive in blood R76.8
[2020-10-27 07:01] LABS: Ceruloplasmin 30 mg/dL (18-53); Copper, Serum 114 mcg/dL (70-175)
== END 2020-10-26 19:25 | DRG 442 ==
LOC: ED 20:13 → 3W 23:36 → SUATTDRO 23:36 → 3W 10-22 00:40 → 2W 10-23 18:31 → 3N 10-25 05:11